=== PATIENT | female | born 1940 | race Hispanic/Latino ===

== ENCOUNTER 2018-03-06 16:27 | Inpatient (IN) | payer MEDICARE, BC ==
[2018-03-06] MEDS ORDERED: Levalbuterol 1.25 MG/3 ML Inhal Soln UD IH STA ×2 (16:49)
[2018-03-06 17:15] LABS: VENOUS BLOOD GAS BASE EXCESS 7.6 mmol/L (0.0-2.0); VENOUS BLOOD GAS PO2 35 mm/Hg (30-55); VENOUS BLOOD PH 7.39 (7.32-7.43)
[2018-03-06 17:26] LABS: BASO # 0.01 K/mm3 (0.0-2.0); EOS % 0.1 % (1.5-5.0); GRAN # 18.6 (1.4-6.5); GRAN % 88.8 % (50.0-68.0); HEMOGLOBIN 13.7 g/dL (12.0-16.0); LYMPH # 1.5 (1.2-3.4); LYMPH % 7.2 % (22.0-35.0); MEAN CELL VOLUME 88.1 fl (80.0-105.0); MEAN CORPUSCULAR HEMOGLOBIN 28.1 pg (25.0-35.0); MEAN CORPUSCULAR HGB CONC 31.9 g/dl (31.0-37.0); MEAN PLATELET VOLUME 9.2 fl (7.0-11.0); MONO # 0.8 (0.1-0.6); MONO % 3.9 % (1.0-6.0); RBC 4.87 10^6/uL (3.5-6.1); RED CELL DISTRIBUTION WIDTH 16.7 % (11.5-14.5)
--- NOTE | 2018-03-06 17:29 | ED PDOC ---
Arrival/HPI - General Chief Complaint: Shortness Of Breath Time Seen by Provider: 03/06/18 16:37 Historian: Patient - History of Present Illness Narrative History of Present Illness (Text): 03/06/18 17:16 77yo female with past medical history of Breast CA (s/p left breast mastectomy 20yrs ago), Lung CA s/p Proton radiation treatment in September, A-fib referred to emergency department by Dr. Restrepo to emergency department for SOB. Patient report SOB x months. States she was placed on Prednisone recently by her [employer] Manager, which was tapered down and she is currently on 2mg. Notes that she did not take the prednisone today. She admits to nonproductive cough. States she was treated with antibiotics few weeks ago and the cough improved, but still coughing. She also started Neb treatment yesterday. states she used the treatment all day without relieve. She denies fever, chills, orthopnea, REYNOLDS, chest pain, diaphroesis, LE edema, calf pain, nausea, vomiting, abdominal pain, any other complaint. Past Medical History - Provider Review Nursing Documentation Reviewed: Yes - Cardiac Hx Atrial Fibrillation: Yes Hx Pacemaker: No - Pulmonary Hx Bronchitis: Yes (05-30-12) - Neurological Hx Neurological Disorder: No - HEENT Other/Comment: WEARS RX GLASSES,POLYPS REMOVED IN THE VOCAL CHORDS.18 YRS AGO. - Hematological/Oncological Hx Blood Disorders: No Hx Cancer: Yes (Breast CA, Lung CA) Other/Comment: Left breast CA with Mastectomy. Lung CA with Proton radiation therapy (2018) - Musculoskeletal/Rheumatological Hx Falls: No - Gastrointestinal Hx Gastrointestinal Disorders: No - Genitourinary/Gynecological Hx Genitourinary Disorders: No Hx Reproductive Disorders: No - Psychiatric Hx Depression: No Hx Emotional Abuse: No Hx Physical Abuse: No Hx Substance Use: No - Surgical History Hx Cardiac Catheterization: Yes (05-30-12) Hx Mastectomy: Yes (Left) Hx Open Heart Surgery: Yes - Anesthesia Hx Anesthesia Reactions: No - Suicidal Assessment Feels Threatened In Home Enviroment: No Family/Social History - Physician Review Nursing Documentation Reviewed: Yes Family/Social History: Unknown Family HX Smoking Status: Current Some Days Smoker Hx Alcohol Use: No Hx Substance Use: No Allergies/Home Meds Allergies/Adverse Reactions: Allergies monosodium glutamate Allergy (Verified 03/06/18 16:47) REDNESS Home Medications: Home Meds Medication Instructions Recorded Confirmed Calcium Carbonate/Vitamin D3 1 tab PO DAILY 03/06/18 03/06/18 [Calcium 600 + Vit D Tablet] Cholecalciferol (Vitamin D3) 1,000 units PO DAILY 03/06/18 03/06/18 [Vitamin D3] Diltiazem HCl [Cardizem LA] 240 mg PO DAILY 03/06/18 03/06/18 Omeprazole 20 mg PO DAILY 03/06/18 03/06/18 RX: LORazepam [Ativan] 1 mg PO TID PRN 03/06/18 03/06/18 Review of Systems - Physician Review All systems were reviewed & negative as marked: Yes - Review of Systems Constitutional: Normal Eyes: Normal ENT: Normal Respiratory: SOB, Wheezing. absent: Cough, Sputum Cardiovascular: Normal Gastrointestinal: Normal Genitourinary Female: Normal Musculoskeletal: Normal Skin: Normal Neurological: Normal Endocrine: Normal Hemo/Lymphatic: Normal Psychiatric: Normal Physical Exam Vital Signs Reviewed: Yes Vital Signs Pulse Resp BP Pulse Ox 03/06/18 16:42 101 H 18 160/81 H 93 L Temperature: Afebrile Blood Pressure: Normal Pulse: Regular Respiratory Rate: Normal Appearance: Positive for: Well-Appearing, Non-Toxic, Comfortable Pain Distress: None Mental Status: Positive for: Alert and Oriented X 3 - Systems Exam Head: Present: Atraumatic, Normocephalic Pupils: Present: PERRL Extroacular Muscles: Present: EOMI Conjunctiva: Present: Normal Mouth: Present: Moist Mucous Membranes Neck: Present: Normal Range of Motion Respiratory/Chest: Present: Good Air Exchange, Wheezes (Diffuse expiratory wheeze), Other (Old healed scar noted on chest wall). No: Respiratory Distress, Accessory Muscle Use, Decreased Breath Sounds, Rales, Retracting, Rhonchi Cardiovascular: Present: Regular Rate and Rhythm, Normal S1, S2. No: Murmurs Abdomen: No: Tenderness, Distention, Peritoneal Signs Back: Present: Normal Inspection Upper Extremity: Present: Normal Inspection. No: Cyanosis, Edema Lower Extremity: Present: Normal Inspection. No: Edema Neurological: Present: GCS=15, CN II-XII Intact, Speech Normal Skin: Present: Warm, Dry, Normal Color. No: Rashes Psychiatric: Present: Alert, Oriented x 3, Normal Insight, Normal Concentration Medical Decision Making ED Course and Treatment: 03/06/18 21:47 Pt was referred to emergency department by Dr. Restrepo for SOB and cough x weeks Labs Chest xray CTA EKG EKG Sinus tachy with PVC @ 103bpm. None-stemi chest xray IMPRESSION: Redemonstration of right lower lobe consolidation and left upper lobe airspace disease with the left upper pleural thickening. Little interval change since the prior CT examination. Labs was reviewed and leukocytosis was noted. PT was on steriod, but WBC was highly elevated. Elevated Lactate was noted and pt was tachycardic and tachypneic on arrival and PNE noted on the chest xray. Code sepsis was called. Fluid and abx was ordered All result was DW both pt and the family members by the bedside. Pt was admitted to Dr. Robb CTA Chest CLINICAL HISTORY: Shortness of breath. TECHNIQUE: Scans are obtained with the bolus injection of IV contrast media. Omnipaque 350 147 ml. DLP 494.64. COMMENTS: There is bright opacification of the aorta and pulmonary arterial structures. The aorta is normal caliber and there is no dissection of the intima. No defect is seen in the pulmonary arteries to suggest pulmonary embolus. Moderate sized hiatal hernia is seen. Status post median sternotomy and CABG. The heart is moderately enlarged. Pulmonary venous congestive changes are present. Scattered pulmonary edema is present. There are areas of scattered ground glass opacifications throughout both lung gracia may represent superimposed pneumonia. The patient is status post left mastectomy. There is a mass like area of consolidation noted in the superior segment of the right lower lobe consistent with malignancy, it measures approximately 6 x 4 cm. There is bilateral hilar adenopathy present. There is no definite evidence of mediastinal adenopathy. There is additional mass like area of consolidation in the left parahilar area which is irregular measuring approximately 6.3 x 3.2 cm. There is severe diffuse scattered centrilobular emphysema with upper lobes predominance. Severe biapical scarring is present. Scarring is seen in the right middle lobe, lingula and lung bases. There is evidence of mild compression fracture deformities involving several thoracolumbar vertebral bodies. The gallbladder contains small calcified gallstone but is otherwise unremarkable. IMPRESSION: 1. No evidence of pulmonary embolism. 2. Moderate sized hiatal hernia. 3. Status post median sternotomy and CABG. The heart is moderately enlarged. 4. Pulmonary venous congestive changes. 5. Scattered pulmonary edema. 6. There are areas of scattered ground glass opacifications throughout both lung garcia may represent superimposed pneumonia. 7. Status post left mastectomy. 8. Mass like area of consolidation noted in the superior segment of the right lower lobe consistent with malignancy, it measures approximately 6 x 4 cm. 9. Bilateral hilar adenopathy. 10. Additional mass like area of consolidation in the left parahilar area which is irregular measuring approximately 6.3 x 3.2 cm. 11. Severe diffuse scattered centrilobular emphysema with upper lobes predominance. 12. Severe biapical scarring. Scarring in the right middle lobe, lingula and lung bases. 13. Mild compression fracture deformities involving several thoracolumbar vertebral bodies. 14. The gallbladder contains small calcified gallstone. 03/07/18 16:35 IMPRESSION: 1. No CTA evidence for acute pulmonary embolism. 2. 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 3. Little interval change in right lower lobe consolidation and airspace disease in the superior segment of the left lower lobe which may represent subsegmental atelectasis however superimposed pneumonia cannot be excluded. Follow-up after medical management is recommended to ensure complete resolution. A preliminary report was provided by [employer]. - RAD Interpretation Radiology Orders: 03/06/18 16:47 ANGIO CHEST PE PROTOCOL [CT] Stat 03/06/18 16:48 CHEST PORTABLE [RAD] Stat - Medication Orders Current Medication Orders: Discontinued Medications Levalbuterol HCl (Xopenex) 1.25 mg IH STAT STA Stop: 03/06/18 16:50 Last Admin: 03/06/18 17:11 Dose: 1.25 mg Levalbuterol HCl (Xopenex) 1.25 mg IH STAT STA Stop: 03/06/18 16:50 Last Admin: 03/06/18 17:11 Dose: 1.25 mg Methylprednisolone (Solu-Medrol) 125 mg IVP STAT STA Stop: 03/06/18 16:50 Last Admin: 03/06/18 17:12 Dose: 125 mg IVP Administration Document 03/06/18 17:12 LA (Rec: 03/06/18 17:12 LA [id number]) Charges for Administration # of IVP Administrations 1 Disposition/Present on Arrival - Present on Arrival Any Indicators Present on Arrival: No History of DVT/PE: No History of Uncontrolled Diabetes: No Urinary Catheter: No History of Decub. Ulcer: No History Surgical Site Infection Following: None - Disposition Have Diagnosis and Disposition been Completed?: Yes Diagnosis: Pneumonia, Sepsis Disposition: HOSPITALIZED Disposition Time: 18:00 Patient Plan: Admission Patient Problems: Current Active Problems Problem Status Onset Pneumonia Acute Sepsis Acute Condition: FAIR
[2018-03-06] MEDS ORDERED: Sodium Chloride 0.9% 1,000 ML IV STA (18:14)
--- NOTE | 2018-03-06 18:14 | RAD ---
Date of service: 03/06/2018 HISTORY: SOB COMPARISON: CT chest without contrast from 01/10/2018 FINDINGS: LUNGS: The lungs are well inflated. There is persistent consolidation in the right lower lobe. There is redemonstration of airspace disease and pleural thickening in the left upper lobe. PLEURA: No pleural effusions or pneumothorax. CARDIOVASCULAR: Mild cardiomegaly. No aortic atherosclerotic calcification present. Status post CABG with OSSEOUS STRUCTURES: There an S-shaped scoliosis in the thoracolumbar spine VISUALIZED UPPER ABDOMEN: Normal. OTHER FINDINGS: None. IMPRESSION: Redemonstration of right lower lobe consolidation and left upper lobe airspace disease with the left upper pleural thickening. Little interval change since the prior CT examination.
[2018-03-06] MEDS ORDERED: Vancomycin 1gm in NS 250ml 1 GM/250 ML BAG IVPB STA (18:15)
[2018-03-06] MEDS ORDERED: Piperacillin/Tazobact 3.375 gm 100 ML IVPB STA (18:15)
[2018-03-06 19:20] LABS: ALB/GLOB RATIO 1.1 (1.1-1.8); ALBUMIN 3.9 g/dL (3.0-4.8); ALT/SGPT 33 U/L (7-56); AST/SGOT 28 U/L (14-36); BLOOD UREA NITROGEN 20 mg/dL (7-21); CALCIUM 10.9 mg/dL (8.4-10.5); GFR NON-AFRICAN AMERICAN 54; PARTIAL THROMBOPLASTIN TIME 26.1 Seconds (25.1-36.5); PROTHROMBIN TIME 11.4 SECONDS (9.4-12.5)
[2018-03-06 19:27] LABS: B-TYPE NATRIURETIC PEPTIDE 324 pg/mL (0-450); TROPONIN I 0.03 ng/mL
[2018-03-06 22:09] LABS: VENOUS BLOOD GAS BASE EXCESS 0.8 mmol/L (0.0-2.0); VENOUS BLOOD GAS PO2 118 mm/Hg (30-55); VENOUS BLOOD PH 7.42 (7.32-7.43)
[2018-03-07 02:52] VITALS: BMI 33.5
[2018-03-07 07:25] LABS: VENOUS BLOOD GAS BASE EXCESS 4.7 mmol/L (0.0-2.0); VENOUS BLOOD GAS PO2 87 mm/Hg (30-55); VENOUS BLOOD PH 7.45 (7.32-7.43)
--- NOTE | 2018-03-07 09:11 | CARD ---
APPROVED REPORT Date of service: 03/06/2018 EKG Measurement Heart [id number] <Conclusion> Sinus tachycardia with occasional premature ventricular complexes RSR' or QR pattern in V1 suggests right ventricular conduction delay Moderate voltage criteria for LVH, may be normal variant ST-T Changes-Correlate Clinically.
[2018-03-07] MEDS: diltiaZEM 240 mg/24 Hours CD Cap PO SCH (11:02)
[2018-03-07] MEDS: MethylPREDNISolone 40 mg Vial IVP SCH ×2 (11:05→21:09)
[2018-03-07] MEDS: Calcium-Vit D 250 mg-125 Units Tab UD PO SCH (11:06)
[2018-03-07] MEDS: Pantoprazole 40 mg EC Tab PO SCH (11:06)
[2018-03-07] MEDS: Albuterol-Ipratrop 3 mg / 0.5 (3 ml) UD IH SCH ×4 (12:01→23:26)
--- NOTE | 2018-03-07 14:02 | CP.PCM.APN ---
Subjective - Date & Time of Evaluation Date of Evaluation: 03/07/18 Time of Evaluation: 10:00 - Subjective Subjective: pt seen at bedside with family, sitting in bed in no distress Review of Systems - Review of Systems All systems: reviewed and no additional remarkable complaints except Review of Systems: cough Objective - Vital Signs/Intake and Output Vital Signs (last 24 hours): Temp Pulse Resp BP Pulse Ox 97.6 F 89 20 140/87 98 03/07/18 12:00 03/07/18 12:16 03/07/18 12:00 03/07/18 12:00 03/07/18 05:33 Intake and Output: 03/07/18 03/07/18 06:59 18:59 Intake Total 120 Balance 120 - Medications Medications: Current Medications Albuterol/Ipratropium (Duoneb 3 Mg/0.5 Mg (3 Ml) Ud) 3 ml IH [id number] [facility] Last Admin: 03/07/18 12:01 Dose: 3 ml Aspirin (Aspirin Chewable) 81 mg PO DAILY [facility] Last Admin: 03/07/18 11:02 Dose: 81 mg Budesonide (Pulmicort Respules) 0.5 mg IH [id number] [facility] Calcium/Vitamin D (Oscal-D 250 Mg-125 Units Tab) 1 tab PO DAILY [facility] Last Admin: 03/07/18 11:06 Dose: 1 tab Diltiazem HCl (Cardizem Cd) 240 mg PO DAILY [facility] Last Admin: 03/07/18 11:02 Dose: 240 mg Methylprednisolone (Solu-Medrol) 40 mg IVP Q12 [facility] Last Admin: 03/07/18 11:05 Dose: 40 mg Pantoprazole Sodium (Protonix Ec Tab) 40 mg PO 0600 [facility] Last Admin: 03/07/18 11:06 Dose: 40 mg - Labs Labs: 03/06/18 16:50 03/06/18 18:55 PT 11.4 SECONDS (9.4-12.5) 03/06/18 18:55 INR 1.00 03/06/18 18:55 APTT 26.1 Seconds (25.1-36.5) 03/06/18 18:55 - Constitutional Appears: Non-toxic, No Acute Distress - Head Exam Head Exam: NORMOCEPHALIC - Eye Exam Eye Exam: Normal appearance - Respiratory Exam Respiratory Exam: Decreased Breath Sounds, NORMAL BREATHING PATTERN - Cardiovascular Exam Cardiovascular Exam: Irregular Rhythm, +S1, +S2 - GI/Abdominal Exam GI & Abdominal Exam: Normal Bowel Sounds Assessment and Plan - Assessment and Plan (Free Text) Plan: Impressions Chest X-Ray 03/06/18 16:48 IMPRESSION: Redemonstration of right lower lobe consolidation and left upper lobe airspace disease with the left upper pleural thickening. Little interval change since the prior CT examination. 03/07/18 08:38 Physician Consult Routine Comment: Consulting Provider: Jaxon Albert Consulting Physician: Jaxon Albert Reason for Consult: hx of afib, CABG 03/07/18 08:41 Physician Consult Routine Comment: Consulting Provider: Eugene Edge Consulting Physician: Eugene Edge Reason for Consult: SOB 03/07/18 08:43 Physician Consult Routine Comment: Consulting Provider: Mario Marti Consulting Physician: Mario Marti Reason for Consult: elevated WBCs Current Active Problems Pneumonia (Acute) Sepsis (Acute) A/P 77 yr old white female with pmh sig for breast ca s/p left mastectomy,afib and cad s/p CABG admitted with sob and nonproductive cough with leukocytosis and sinus tachycardia now with cardiac, pulmonary and ID consultations and workup pending. pt with cxr noted on iV steroids and dounebs chest Ct pending will follow BPCI/TIC - BPCIA/TIC Flyers given, including CMS Beneficiary letter: Yes Pt/family verbalized understanding & agreed to program: Yes
--- NOTE | 2018-03-07 14:14 | CT ---
Date of service: 03/06/2018 PROCEDURE: CT Chest with contrast (Pulmonary Angiogram) HISTORY: SOB COMPARISON: CT chest without contrast from 10/10/2010. TECHNIQUE: Axial computed tomography images were obtained of the chest in the pulmonary arterial phase of enhancement. Coronal and sagittal reformatted images were created and reviewed. Intravenous contrast dose: 147 mL Omnipaque 350 Radiation dose: Total exam DLP = 494.64 mGy-cm. This CT exam was performed using one or more of the following dose reduction techniques: Automated exposure control, adjustment of the mA and/or kV according to patient size, and/or use of iterative reconstruction technique. FINDINGS: PULMONARY ARTERIES: There are no filling defects in the pulmonary arteries to suggest acute pulmonary embolism. AORTA: No acute findings. No thoracic aortic aneurysm. No aortic atherosclerotic calcification or mural plaque present. LUNGS: Since the prior examination, there has been little interval change in right lower lobe consolidation with air bronchograms. There is stable to slightly decreased 3.2 by 1.1 cm pleural-based mass in the left upper lobe and fibrotic changes in the left upper lobe.. There is also little interval change in airspace disease in the superior segment of the left lower lobe. There are no endobronchial lesions. PLEURAL SPACES: No effusion or pneumothorax. HEART: No cardiomegaly. No significant pericardial effusion. LYMPH NODES: There are stable subcentimeter mediastinal lymph nodes and mild hilar lymphadenopathy. BONES, CHEST WALL: Within normal limits for the patient's age. Multilevel degenerative changes and diffuse bone demineralization. There is an old superior endplate compression fracture deformity in the L2 vertebral body. OTHER FINDINGS: There is a stable hypodense nodule in the lower pole of the right thyroid. There is focal gallbladder wall calcification posteriorly. Fatty liver. There is a small sliding hiatal hernia. IMPRESSION: 1. No CTA evidence for acute pulmonary embolism. 2. 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 3. Little interval change in right lower lobe consolidation and airspace disease in the superior segment of the left lower lobe which may represent subsegmental atelectasis however superimposed pneumonia cannot be excluded. Follow-up after medical management is recommended to ensure complete resolution. A preliminary report was provided by [employer]. There is a discrepancy with the preliminary report. The final report is tagged to the PA review folder.
--- NOTE | 2018-03-07 16:53 | CARD ---
APPROVED REPORT Date of service: 03/07/2018 EXAM: Two-dimensional and M-mode echocardiogram with Doppler and color Doppler. INDICATION Dyspnea 2D DIMENSIONS Left Atrium (2D)3.5 (1.6-4.0cm)IVSd0.9 (0.7-1.1cm) LVDd4.6 (3.9-5.9cm)PWd1.1 (0.7-1.1cm) LVDs2.9 (2.5-4.0cm)FS (%) 36.0 % LVEF (%)65.6 (>50%) M-Mode DIMENSIONS Aortic Root3.10 (2.2-3.7cm)Aortic Cusp Exc.1.50 (1.5-2.0cm) Aortic Valve AoV Peak Svfhnehv225.0cm/sAoV VTI40.4cmAO Peak GR.16mmHg LVOT Peak Vsppqbga47.3cm/sLVOT VTI23.40cmAO Mean GR.9mmHg Mitral Valve MV E Jegniyvi24.1cm/sMV A Eohcixig93.3cm/sE/A ratio0.8 TDI Lateral E' Peak V10.00cm/sMedial E' Peak V8.29cm/sE/Lateral E'7.7 E/Medial E'9.3 Pulmonary Valve PV Peak Kpounbzh27.1cm/sPV Peak Grad.1mmHg Tricuspid Valve TR Peak Sbbbnjen398mx/sRAP XZTMCEIW21yoBaGM Peak Gr.56mmHg [id number] LEFT VENTRICLE The left ventricle is normal size. There is normal left ventricular wall thickness. The left ventricular function is normal. The left ventricular ejection fraction is within the normal range. There is normal LV segmental wall motion. RIGHT VENTRICLE The right ventricle is mildly dilated. There is normal right ventricular wall thickness. The right ventricular systolic function is normal. ATRIA The left atrium size is normal. The right atrium is moderately dilated. The interatrial septum is intact with no evidence for an atrial septal defect. AORTIC VALVE The aortic valve is normal in structure. No aortic regurgitation is present. There is no aortic valvular stenosis. MITRAL VALVE Mitral annular calcification is mild. There is no mitral valve regurgitation noted. TRICUSPID VALVE The tricuspid valve is normal in structure. There is moderate to severe tricuspid regurgitation. There is moderate to severe pulmonary hypertension. GREAT VESSELS The aortic root is normal in size. The IVC is normal in size and collapses >50% with inspiration. PERICARDIAL EFFUSION There is no pleural effusion. There is no pericardial effusion. <Conclusion> Dilated RV and RA. Normal LV size and systolic function. Moderate to severe TR. Moderate to sevre pulmonary HTN.
[2018-03-07] MEDS: Sulfamethoxazole/Trimethoprim 240 MG in Dextrose 5% In Water 250 ML IVPB SCH (19:02)
--- NOTE | 2018-03-07 19:03 | CON ---
DATE: 03/07/2018 PULMONARY CONSULTATION REASON FOR PULMONARY CONSULTATION: Chronic obstructive pulmonary disease. REFERRING PHYSICIAN FOR THIS PULMONARY CONSULTATION: Dr. Restrepo. HISTORY OF PRESENT ILLNESS: The patient is a 77-year-old female, with past medical history significant for advanced lung cancer, status post proton beam radiation treatments, chronic obstructive pulmonary disease, paroxysmal atrial fibrillation, who presents to [facility] ([facility]3] with main complaints of dyspnea on exertion, cough, and minimal sputum production for the past month. The patient is not short of breath at rest. There is no history of chest pain, coughing up of blood, or chest pain - brought on with deep respirations. There is no history of temperatures, chills, or infectious exposure. There is no history of night sweats, weight loss, or appetite change prior to the above events. No history of leg or calf pains. No history of syncope or diaphoresis. No history of recent travel or trauma. REVIEW OF SYSTEMS: No nausea, vomiting, or diarrhea. No acute urinary symptoms. No new neurologic or musculoskeletal complaints. Rest of the review of systems is negative. ALLERGIES: MONOSODIUM GLUTAMATE. SOCIAL HISTORY: Positive for tobacco usage for many years - stopped six years ago. No alcohol. FAMILY HISTORY: No inheritable diseases. HOME MEDICATIONS: Include Ativan, omeprazole, calcium, Cardizem, and vitamins. PHYSICAL EXAMINATION: GENERAL: The patient appears comfortable at rest. She is not short of breath. VITAL SIGNS: Temperature is 98.2, pulse 70, respirations 18, blood pressure 153/61. Oxygen saturation on nasal cannula is 98%. HEENT: Normocephalic, atraumatic. NECK: No JVD. CARDIOVASCULAR: Positive S1, S2. No S3 gallop. LUNGS: Decreased breath sounds at the bases. Mild rhonchi and wheezing bilaterally are appreciated. EXTREMITIES: Mild edema. No cyanosis, no clubbing. Calves are nontender to palpation. GASTROINTESTINAL: Abdomen is soft, nontender, and nondistended. Bowel sounds are positive. SKIN: No acute rash. NEUROLOGIC: Exam limited at the present time. PERTINENT LABORATORY DATA: CAT scan of the chest was done yesterday as an angiogram protocol. There is no pulmonary embolism seen. There is a left upper lobe consolidation with bronchiectasis. There is also a right lower lobe consolidation. These consolidations are not significantly changed from the CAT scan of 01/10/2018. CBC: White count 21.0K, hemoglobin 13.7, hematocrit 42.9, platelets of 375,000. Complete metabolic profile: Glucose 120, calcium 10.9, LDH 870. Rest of the metabolic profile is within normal limits. IMPRESSION: 1. Chronic obstructive pulmonary disease. 2. Acute bronchitis. 3. Advanced lung cancer. 4. Possible radiation pneumonitis. 5. Paroxysmal atrial fibrillation. PLAN: I did discuss the case with the nurse at length. I have also reviewed the chart at length, and discussed the case with the patient at length. The patient presents to [facility] ([facility]3] with a one-month history of worsening dyspnea on exertion, cough, and minimal sputum production. She offers no other pulmonary symptoms. I did review the CAT scan of the chest - done as an angiogram protocol. Again, the consolidations in the left upper lobe and right lower lobe are very similar to those seen on the CAT scan of 01/10/2018. I have also reviewed the history with Dr. Restrepo at length. Radiation pneumonitis is a possibility. On physical exam, the patient is in [id number] bronchospasm. However, there is no significant alveolar-arterial gradient. I will continue the current DuoNeb treatments and add inhaled Pulmicort. I will also add moderate-dose intravenous steroids. The patient does state to feeling better this morning - compared to the past few days. She appears clinically improved. However, given the above, her future status/prognosis appears very guarded . Again, I did discuss the case with Dr. Restrepo at length. Thank you very much for this pulmonary consultation. Nitesh Larkin MD [facility]
[2018-03-07] MEDS: Budesonide 0.5 mg/2 ml Inhal Susp UD IH SCH (20:19)
--- NOTE | 2018-03-07 21:52 | CON ---
DATE: 03/07/2018 The patient is seen early today in room 269, bed 2. CHIEF COMPLAINT: Shortness of breath times several days and actually overall most of several weeks have gotten worse. HISTORY OF PRESENT ILLNESS: This is a 77-year-old female known to me from previous admission 2012 with chronic obstructive lung disease and was seen in the emergency room. The patient also with high cholesterol, anxiety, history of coronary artery disease, and history of lung cancer. According to the emergency room, the patient also had breast mastectomy 20 years ago with lung cancer, the patient had radiation therapy and has been complaining of shortness of breath, which gotten worse over the last several weeks. The patient has been on prednisone 2 mg and was on higher dose earlier and has gotten worse progressive shortness of breath. There is cough which is nonproductive and there is low-grade fever. No chills. No chest pain. No abdominal pain, diarrhea, or constipation. REVIEW OF SYSTEMS: A 12-point review of systems performed. PAST MEDICAL HISTORY: Significant for atrial fibrillation, bronchitis, lung cancer, radiation therapy, coronary artery disease, and anxiety. PAST SURGICAL HISTORY: Significant for breast mastectomy, cardiac catheterization, coronary artery bypass graft by on 05/31/2012. ALLERGIES: MONOSODIUM GLUTAMATE. MEDICATIONS AT HOME: Include Ativan, omeprazole, vitamins, and . PHYSICAL EXAMINATION: VITAL SIGNS: The patient is seen in bed with temperature of 98, heart rate of 89, heart rate is up to 101 on admission, respiratory rate of 20, and blood pressure 140/80. HEENT: Unremarkable. NECK: Supple. LUNGS: Decreased breath sounds. HEART: Normal S1 and S2. ABDOMEN: Soft and nontender. LABORATORY DATA: Reveals a white count of 21,000, hemoglobin of 13, and platelets of 375. The differential is noted granulocyte 88%. D-dimer is 43. BUN of 20, creatinine of 1, glucose of 120, and procalcitonin of 0.12. Influenza serology is negative. Microbiology; blood cultures no growth. The patient had an echo with [id number] pulmonary hypertension. The patient had a CAT scan of the chest, which reveals air bronchograms and right lower lobe consolidation, pleural based mass, and no effusion or pneumothorax, interstitial disease. The patient also had a chest x-ray noted to have infiltrates. ASSESSMENT AND PLAN: A 77-year-old female with chronic obstructive lung disease, high cholesterol, atrial fibrillation, anxiety, coronary artery disease, lung cancer presenting with leukocytosis, tachycardia, shortness of breath, sepsis with healthcare-associated pneumonia versus opportunistic infections. The patient has been on steroids and tapering dose and PCP, Histoplasma, Aspergillus, Cryptococcus, and Legionella less likely and we will treat the patient with Bactrim and doxycycline, check on blood cultures, urine cultures, sputum culture, and methicillin-resistant Staphylococcus aureus screen. We will order for Aspergillus workup, Cryptococcus antigen, Fungitell, 1,3 beta D-glucan, also galactomannan antigen and urine for Legionella antigen. The patient started on Solu-Medrol and we will start the patient on Bactrim and doxycycline. The patient does have an elevated LDH and we will follow closely with you. Marino Madera MD
[2018-03-08 00:14] LABS: URINE BILIRUBIN NEGATIVE (NEGATIVE); URINE BLOOD SMALL (NEGATIVE); URINE GLUCOSE (UA) NEGATIVE (NEGATIVE); URINE LEUKOCYTE ESTERASE TRACE Leu/uL (NEGATIVE); URINE PROTEIN NEGATIVE mg/dL (<30 mg/dL); URINE UROBILINOGEN 0.2 E.U./dL (<1 E.U./dL)
[2018-03-08 00:15] LABS: URINE APPEARANCE SL CLOUDY (CLEAR); URINE COLOR YELLOW (YELLOW)
[2018-03-08 00:24] LABS: URINE BACTERIA RARE /hpf; URINE EPITHELIAL CELLS 0 - 2 /hpf (0-5); URINE RBC 0 - 2 /hpf (0-2); URINE WBC 15 - 20 /hpf (0-6)
--- NOTE | 2018-03-08 00:48 | CON ---
DATE OF CONSULTATION: 03/07/2018 REQUESTING PHYSICIAN: Dr. Restrepo REASON FOR CONSULTATION: Dyspnea and known coronary artery disease. HISTORY: This is a 77-year-old woman with known coronary artery disease status post prior bypass surgery as well as a history of paroxysmal atrial fibrillation, who was admitted with worsening cough and dyspnea. She has been treated as an outpatient with antibiotics and steroids with suboptimal benefit. She presented with worsening symptoms and was admitted. She did undergo coronary artery bypass surgery 5 years ago at [facility]. She has had a history of paroxysmal atrial fibrillation as well. She has a prior history of breast cancer for which she underwent left mastectomy over 20 years ago. She was recently diagnosed with lung cancer in 09/2017 and underwent proton radiation therapy for this. She denies any recent chest pain. FAMILY HISTORY: Both parents from age-related illness. SOCIAL HISTORY: She tends to smoke occasionally. MEDICATIONS AT HOME: Ativan, diltiazem 240 mg daily, and omeprazole. ALLERGIES: REACTION TO MSG IN THE PAST. REVIEW OF SYSTEMS: A 10-point review of systems is notable mainly for the problems mentioned above. PHYSICAL EXAMINATION: GENERAL: She is an elderly woman who appears mildly uncomfortable at rest secondary to dyspnea. VITAL SIGNS: Her blood pressure is 140/86 with pulse of 88 and sinus. Respirations are 16. She is afebrile. HEENT: Normocephalic, atraumatic. NECK: Supple. No JVD noted. CHEST: Bilateral coarse rhonchi with expiratory wheezing present. No rales heard. HEART: PMI displaced laterally with a soft systolic murmur heard at left sternal border. ABDOMEN: Soft with normoactive bowel sounds. EXTREMITIES: No clubbing, cyanosis or edema. SKIN: Warm and dry. PSYCHIATRIC: Normal mood and affect. NEUROLOGICAL: Alert and oriented x3. No gross motor or sensory deficits noted. DIAGNOSTIC DATA: White count is 21.0, hemoglobin and hematocrit are 13.7 and 42.9 with platelet count of 375,000. PT/PTT are normal. Venous blood gas: pH 7.39, pCO2 of 57, pO2 of 35. Potassium is 3.7. BUN and creatinine are 20 and 1.0. Troponin is 0.03. BNP is 324. Influenza serology is negative. Electrocardiogram reveals sinus tachycardia with occasional PVCs. Voltage criteria for LVH is present. Chest x-ray reveals increased cardiac silhouette, post sternotomy changes, and possible right lower lobe consolidation. IMPRESSION: 1. Worsening dyspnea and cough, appears most consistent with chronic obstructive pulmonary disease exacerbation. Cannot exclude underlying pneumonia. 2. Coronary artery disease, status post prior bypass surgery, appears clinically stable at the present time. 3. Paroxysmal atrial fibrillation, currently in sinus rhythm. 4. History of lung cancer, undergoing active therapy. RECOMMENDATIONS: Her current cardiac medications should continue for now. An echocardiogram will be obtained to assess the left ventricular size and function and exclude any significant valvular abnormalities. Aggressive bronchodilator and steroid therapy should continue. We will continue to follow and make further recommendations as appropriate. Thank you for this consultation. Devonte Infante MD
[2018-03-08] MEDS: Sulfamethoxazole/Trimethoprim 240 MG in Dextrose 5% In Water 250 ML IVPB SCH ×3 (02:34→18:37)
[2018-03-08] MEDS: Albuterol-Ipratrop 3 mg / 0.5 (3 ml) UD IH SCH ×6 (02:54→23:33)
[2018-03-08] MEDS: Pantoprazole 40 mg EC Tab PO SCH (06:12)
[2018-03-08 07:31] LABS: BASO # 0.01 K/mm3 (0.0-2.0); GRAN # 20.88 (1.4-6.5); GRAN % 95.2 % (50.0-68.0); HEMOGLOBIN 12.6 g/dL (12.0-16.0); LYMPH # 0.6 (1.2-3.4); LYMPH % 2.7 % (22.0-35.0); MEAN CELL VOLUME 87.3 fl (80.0-105.0); MEAN CORPUSCULAR HEMOGLOBIN 28.1 pg (25.0-35.0); MEAN CORPUSCULAR HGB CONC 32.2 g/dl (31.0-37.0); MEAN PLATELET VOLUME 9.4 fl (7.0-11.0); MONO # 0.5 (0.1-0.6); MONO % 2.1 % (1.0-6.0); PLATELET COUNT 367 10^3/uL (120.0-450.0); RBC 4.48 10^6/uL (3.5-6.1); RED CELL DISTRIBUTION WIDTH 16.4 % (11.5-14.5); WHITE BLOOD COUNT 21.9 10^3/uL (4.5-11.0)
[2018-03-08 07:51] LABS: ALB/GLOB RATIO 1.1 (1.1-1.8); ALBUMIN 3.4 g/dL (3.0-4.8); ALT/SGPT 34 U/L (7-56); AST/SGOT 22 U/L (14-36); BLOOD UREA NITROGEN 21 mg/dL (7-21); CALCIUM 9.8 mg/dL (8.4-10.5); GFR NON-AFRICAN AMERICAN > 60
--- NOTE | 2018-03-08 08:19 | HP ---
DATE OF EXAM: 03/08/2018 LOCATION: The patient is in room 269, bed 2. The patient was earlier seen today after being admitted through the emergency room. 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 The patient was not a candidate for surgical resection. She has biopsy-proven adenocarcinoma of the lung, especially biopsy of the left upper lobe of the lung. The right lower lobe lung lesion was noted to be progressively getting worse and assumed to be met or new primary, but was not biopsied. Both the lesions were treated simultaneously with proton beam therapy as the patient was not a candidate for, as I mentioned, surgical resection or systemic chemotherapy. The patient did receive oral drugs such as Tarceva, but could not tolerate it and while on the treatment, the disease was getting slightly worse and that is when we chose to go the path of radiation therapy. The patient completed radiation about a month and a half ago, but since then had been coughing after being quiescent for about two to three weeks, started having increasing coughing, wheezing, and shortness of breath, had been seen by the radiation oncologist again, had been put empirically on steroids or what appeared to be on impression radiation pneumonitis as the tumors in both the areas on a followup PET/CT scan did not light up and yet the patient had dense consolidation around the surrounding sites where the original tumor was indicative of radiation side effect. The patient has been on tapering doses of steroids and then her breathing got worse and she had been again started on higher doses and is being tapered gradually. The patient was down to prednisone of 2 mg, but prior to this, was on much higher doses of up to 60 mg a day. The patient has been having progressive shortness of breath with mild, little, or no productive cough over the last month. The patient tells me that over the last few days, she had gotten progressively worse, and yesterday prior to admission, she was having increasing wheezing, increasing coughing and she had an untoward reaction to one of the antibiotics that the had been given, and her wheezing had gotten so difficult that she thought she was drowning in her own secretions and she thought she was dying and that is when she told her granddaughter to give me a call and I advised the patient to come over to the hospital. The cough that is being experienced by the patient is nonproductive, but the patient also has a low grade temperature. No chills. The patient has been having significant mid back pain related to kyphoscoliosis. No abdominal pain, diarrhea, or constipation. Ankle edema has gotten worse. Her shortness of breath and pain and discomfort on a scale of 0 to 10, if 10 was the best, was down almost to 0, prompting her to come to the hospital. The patient had just seen the radiation oncologist along with her son about five days ago prior to the admission on Sunday,when he had gone over all the films with them and reassured them this was most likely radiation pneumonitis rather than progression of the disease as a PET/CT failed to light up the original sites where the tumor was located on the prior PET/CT. A question of an opportunistic infection was also raised as the patient has been on steroids intermittently over the past few months. REVIEW OF SYSTEMS: A 12-point review of systems is performed and they were all negative except what is mentioned in the HPI. PAST MEDICAL HISTORY: Also significant for the fact the patient has a remote history of breast cancer on the left side about 25 years ago, early disease, treated with tamoxifen after five years everything was stopped. The patient has a history of COPD. She is a heavy smoker, quit smoking about several years ago. The patient has history of coronary artery disease, status post coronary artery bypass surgery. The patient has a history of kyphoscoliosis, which has gotten worse over the last few years. The patient also has a history of anxiety. The patient has been treated in the past with TKIs including Tarceva in the past. The patient had progression, not a candidate for chemotherapy and hence been given proton beam therapy. ALLERGIES: PATIENT IS ALLERGIC TO MONOSODIUM GLUTAMATE. MEDICATIONS: At the home included, Ativan, omeprazole, vitamin D and multivitamins. She has also received Mycelex Mi that she was taking at home for her thrush in the past. PHYSICAL EXAMINATION: GENERAL: Reveals the patient to be awake, alert. VITAL SIGNS: The patient's temperature is 98, heart rate is 89, was up to 101 on admission, respirations 20, blood pressure is 140/80. HEENT: Head is normocephalic, atraumatic. Conjunctivae pale. Sclerae are anicteric. The patient is short of breath at rest. NECK: Supple. There is no adenopathy. LUNGS: Examination of the lungs reveals scattered wheezes, rhonchi with crepitant rales in both lung garcia posteriorly. CARDIOVASCULAR: Examination of the cardiovascular system reveals PMI to be in the fifth intercostal space inside the midclavicular line. S1 and S2 are normal. No gallop or murmur is heard. ABDOMEN: Soft, mildly protuberant, nontender. No rebound, rigidity, or guarding is noted. EXTREMITIES: Reveal ankle edema in both lower extremities. Upper extremities are unremarkable. NEUROLOGIC: Reveals functions to be normal. No focal deficits are noted, plantars or flexors. LABORATORY DATA: Reviewed. White count is 21,000; hemoglobin is 13; hematocrit is 32; platelet count 375,000; granulocyte count is 88%. D-dimer is 43. BUN is 20, creatinine is 1. Glucose is 120. Procalcitonin is 0.12. Influenza serology is negative. Blood cultures showed no growth. The patient had an echo which shows [id number] pulmonary hypertension. CAT scan of the chest which shows air bronchograms and right lower lobe consolidation, left lower lobe consolidation. No effusions, no pneumothorax, or interstitial lung disease. The patient also in addition to having the aforementioned findings, also had a diagnosis of paroxysmal atrial fibrillation for which she had been put on Cardizem by Dr. Albert along with short course of Eliquis which had then had to be stopped as the patient has significant hematuria. ASSESSMENT NOTES AND PLAN: A 77-year-old female with chronic obstructive lung disease, chronic obstructive pulmonary disease, emphysema who is admitted with progressive shortness of breath in the presence of atrial fibrillation paroxysmal, coronary artery disease, history of bilateral lung cancer, status post proton beam therapy, had been on high-dose prednisone which was being tapered and now readmitted in the emergency room and given again high doses of steroids because of worsening shortness of breath along with coverage with antibiotics to give her the benefit of doubt whether the patient could have an opportunistic infection while being on steroids for more than two and a half months. Differential diagnosis of infection could be PCP, histoplasmosis, Aspergillus Cryptococcus and Legionella less likely. In view of this, the patient has been started on IV antibiotics. The patient got IV Solu-Medrol 125 mg in the emergency room. She got a dose of vancomycin and Merrem and now after being seen by Infectious Disease, the patient has been started on p.o. doxycycline and IV Bactrim in view of the chronic steroid therapy. The patient has also had checked for methicillin-resistant Staph aureus screen. Also ordered for Aspergillus and Cryptococcus antigen testing, fungi, T cells 1.3, beta-D glucan and galactomannan antigen and urine for Legionella antigen have also been requested. The patient has an elevated LDH, which is of concern of increased damage to the lungs, so we need to follow her very over the next few days. Blood work has been requested. The patient is going to be seen by Infectious Disease, Dr. Madera; Cardiology Dr. Albert, and Dr. Infante, and Pulmonology Dr. Larkin. We will follow the patient very carefully and decide on further maneuvers and management plans. A detailed discussion with the patient's son, also I spoke to the patient's daughter from out of town at great length along with the patient. Time spent with the patient is greater than 80 minutes, collating all the data giving in the information to the patient and her family and discussing further treatment plans. I told the patient she may have to continue the antibiotics to assure which direction we are headed as since being on steroids increases the chances of immunosuppression and opportunistic infection. We will cover the patient also with Mycelex Troches to prevent issues with local thrush infection in the mouth and the oropharynx. Labs for a.m has been requested. Vicki Restrepo MD
[2018-03-08 08:24] LABS: LYMPHOCYTE 1 % (22.0-35.0); MONOCYTE 1 % (1.0-6.0); NEUTROPHIL 98 % (50.0-70.0); PLATELET ESTIMATE NORMAL (NORMAL)
--- NOTE | 2018-03-08 08:24 | PN ---
DATE: 03/08/2018 PULMONARY NOTE SUBJECTIVE: The patient is appears comfortable this morning. She is not short of breath at rest. PHYSICAL EXAMINATION: VITAL SIGNS: Temperature is 98.1, pulse 74, respirations 18/20, blood pressure 131/73 and oxygen saturation on nasal cannula is 95%. HEENT: Normocephalic and atraumatic. No JVD. CARDIOVASCULAR: Positive S1 and S2. No S3 gallop. LUNGS: Improved breath sounds at the bases. Less rhonchi. Less wheezing. EXTREMITIES: Mild edema. No cyanosis. No clubbing. Calves are nontender to palpation. GI: Abdomen is soft, nontender and nondistended. Bowel sounds are positive. SKIN: No acute rash. NEUROLOGIC: Exam limited at the present time. IMPRESSION: 1. Chronic obstructive pulmonary disease. 2. Acute bronchitis. 3. Advanced lung cancer. 4. Possible radiation pneumonitis. 5. Paroxysmal atrial fibrillation. PLAN: The patient appears comfortable this morning. She is not short of breath at rest. She does state to feeling better overall. I did discuss the case with the night nurse at length. The night nurse stated the patient had a good night. On physical exam, there is certainly less bronchospasm noted. In addition, the alveolar-arterial gradient is also less. I will continue the current nebulizer treatments and current intravenous steroids for now. I should be able to start the steroid taper in the next 24-48 hours. The patient is also on antibiotic therapy. Input by Infectious Disease (Rocio Worthy) is noted. Clinical status of the patient is certainly improved - compared to initial presentation. However, given the above, the future status/prognosis for this patient remains very guarded. I will discuss the above with the attending physician later this morning. Nitesh Larkin MD [facility]
[2018-03-08] MEDS: Budesonide 0.5 mg/2 ml Inhal Susp UD IH SCH ×2 (08:32→19:58)
[2018-03-08] MEDS: diltiaZEM 240 mg/24 Hours CD Cap PO SCH (09:25)
[2018-03-08] MEDS: MethylPREDNISolone 40 mg Vial IVP SCH ×2 (09:25→22:35)
[2018-03-08] MEDS: Calcium-Vit D 250 mg-125 Units Tab UD PO SCH (09:26)
--- NOTE | 2018-03-08 12:54 | CP.PCM.PN ---
Subjective - Date & Time of Evaluation Date of Evaluation: 03/08/18 Time of Evaluation: 11:10 - Subjective Subjective: Patient is sitting on a chair comfortably, no fevers, still with SOB but less. Objective - Vital Signs/Intake and Output Vital Signs (last 24 hours): Temp Pulse Resp BP Pulse Ox 97.6 F 86 14 139/79 95 03/08/18 12:00 03/08/18 12:00 03/08/18 12:00 03/08/18 12:00 03/08/18 06:00 Intake and Output: 03/08/18 03/08/18 06:59 18:59 Intake Total 2100 Output Total 3 Balance 7 - Medications Medications: Current Medications Albuterol/Ipratropium (Duoneb 3 Mg/0.5 Mg (3 Ml) Ud) 3 ml IH [id number] [facility] Last Admin: 03/08/18 11:25 Dose: 3 ml Aspirin (Aspirin Chewable) 81 mg PO DAILY [facility] Last Admin: 03/08/18 09:26 Dose: 81 mg Budesonide (Pulmicort Respules) 0.5 mg IH [id number] [facility] Last Admin: 03/08/18 08:32 Dose: 0.5 mg Calcium/Vitamin D (Oscal-D 250 Mg-125 Units Tab) 1 tab PO DAILY [facility] Last Admin: 03/08/18 09:26 Dose: 1 tab Diltiazem HCl (Cardizem Cd) 240 mg PO DAILY [facility] Last Admin: 03/08/18 09:25 Dose: 240 mg Doxycycline Hyclate (Doryx) 100 mg PO Q12 [facility]; Protocol Stop: 03/12/18 22:01 Last Admin: 03/08/18 09:26 Dose: 100 mg Trimethoprim/Sulfamethoxazole (240 mg/ Dextrose) 250 mls @ 166.667 mls/hr IVPB Q8H [facility]; Protocol Stop: 03/14/18 18:01 Last Admin: 03/08/18 11:09 Dose: 166.667 mls/hr Lorazepam (Ativan) 1 mg PO TID PRN; Protocol PRN Reason: Anxiety Methylprednisolone (Solu-Medrol) 40 mg IVP Q12 [facility] Last Admin: 03/08/18 09:25 Dose: 40 mg Pantoprazole Sodium (Protonix Ec Tab) 40 mg PO 0600 [facility] Last Admin: 03/08/18 06:12 Dose: 40 mg - Labs Labs: 03/08/18 07:00 03/08/18 07:00 PT 11.4 SECONDS (9.4-12.5) 03/06/18 18:55 INR 1.00 03/06/18 18:55 APTT 26.1 Seconds (25.1-36.5) 03/06/18 18:55 - Constitutional Appears: Chronically Ill - Head Exam Head Exam: NORMAL INSPECTION - Neck Exam Neck Exam: absent: Meningismus - Respiratory Exam Respiratory Exam: Decreased Breath Sounds - Cardiovascular Exam Cardiovascular Exam: +S1, +S2 - GI/Abdominal Exam GI & Abdominal Exam: Soft. absent: Tenderness Assessment and Plan - Assessment and Plan (Free Text) Plan: Assessment Sepsis due to HCAP, atypical lung CA CAD S/P CABG S/P mastectomy atrial fibrillation history of bronchitis COPD anxiety Plan Continue IV Bactrim and PO Doxycycline pending fungitell, histoplasma antigen, Crypt Ag; LDH is elevated PCT is low will continue to monitor clinically
--- NOTE | 2018-03-08 13:12 | CON ---
DATE: 03/08/2018 REFERRING PHYSICIAN: Dr. Restrepo. REASON FOR CONSULTATION: Medical management of COPD, coronary artery disease and anxiety. CHIEF COMPLAINT AND HISTORY OF PRESENT ILLNESS: This is a 77-year-old female, who came in to the hospital because of shortness of breath. The patient was having worsening shortness of breath. She was placed on prednisone by Dr. Edge, but state that she did not take the medication. She had missed out on an antibiotic for cough, but still remained with the cough. The patient does not have much sputum production today. She says that she does not have shortness of breath when she is at rest, only on exertion. She denies any fevers or chills. No nausea. No abdominal pain. No back pain. No dysuria or frequency. No nocturia. 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 She had been treated with radiation. She has a history of COPD as well. She had received Tarceva for her cancer. In the past she had been on steroids with prednisone mg. REVIEW OF SYSTEMS: All other review of symptoms are within normal limits except as mentioned. ALLERGIES: TO MONOSODIUM GLUTAMATE. MEDICATIONS: Her medications is Ativan, omeprazole, vitamin D and multivitamins. PAST MEDICAL HISTORY: 1. Breast cancer, left side x25 years ago. Had been on tamoxifen for 5 years. 2. COPD. 3. Coronary artery disease status post CABG. 4. Kyphosis. 5. Anxiety. 6. Non-small cell carcinoma of the lung. SOCIAL HISTORY: The patient was a smoker, but quit about 6 years ago. She denies alcohol abuse. FAMILY HISTORY: Noncontributory. PHYSICAL EXAMINATION: VITAL SIGNS: Temperature is 98.1, pulse is 74, blood pressure 131/73, respirations 20, O2 saturation is 95%. Height is 5 feet 2 inches, weight is 175 pounds. BMI is 31.6. GENERAL: The patient is lying in bed, comfortable, and in no acute distress. HEENT: Atraumatic and normocephalic. Anicteric sclerae. Moist mucosa. [place] conjunctivae. No oral lesions. NECK: No JVD, anterior and posterior adenopathy, thyromegaly, or bruits. CARDIOVASCULAR: S1 and S2 regular. No murmurs, rubs or gallops. LUNGS: Clear to auscultation bilaterally. No wheezes, rales, or rhonchi. ABDOMEN: Bowel sounds are positive. Soft, nontender and nondistended. No hepatosplenomegaly. No rebound and no guarding. EXTREMITIES: No cyanosis, clubbing, or edema. NEUROLOGIC: No facial asymmetry. Tongue is midline. No uvula deviation. Power is 5/5 upper extremities and lower extremities. Sensation intact in upper extremities and lower extremities. PSYCHIATRIC: She is awake, alert and oriented x3. No anxiety or depression. She has normal affect. GENITOURINARY: No CVA tenderness. VASCULAR: 2+ pulses in the carotid pulses and pedal pulses. SKIN: No erythema or nodules. SPINE: Shows normal curvature. LABORATORY DATA: White count of 21, hemoglobin is 13, and platelets count is 375. INR is 1. Chemistry done shows a sodium 141, potassium is 3.7 and creatinine is 1. Calcium is 10.9. The patient has an albumin of 3.9. Urine shows glucose is negative, ketones are negative, , leukocyte is trace, influenza is negative. Chest x-ray shows right lower lobe consolidation and left upper lobe air space disease. An EKG done shows heart rate of 103, sinus tachycardia. CT of the chest done, no CTA evidence of pulmonary embolism. There is little interval change in the right lower lobe consolidation and air space disease in the superior segment of the left lower lobe. An echo shows dilated RV and RA, a ndezplcf-fa-muvbrv TR, a xszinjxe-qz-jowviz pulmonary hypertension. ASSESSMENT: 1. Anxiety. 2. Chronic obstructive pulmonary disease. 3. Hospital-acquired pneumonia. 4. Dyslipidemia. 5. Coronary artery disease status post coronary artery bypass grafting. 6. Axspsbmf-ii-sifnyv tricuspid regurgitation. 7. Ivolcsip-bz-xlufvn pulmonary hypertension. PLAN: The patient is going to be admitted to the hospital. She is on aspirin. She has anxiety, I will place her on Ativan. The patient has been placed on Bactrim for possible PCP. The patient is on Cardizem, this will be continued, is going to continue with calcium for her osteoporosis prevention. She is on Solu-Medrol for her COPD. The Legionella of the urine has been ordered. The patient is receiving nebulizer treatments. She is on Pulmicort. Heart healthy diet. The patient is breathing better. Patient is on a heart healthy diet. We will order physical therapy. EKG shows heart rate of 103, sinus tachycardia, QTC is 497. Poor EKG done, but non specific ST changes. Maximilian Blackwood MD
--- NOTE | 2018-03-08 16:03 | PN ---
DATE: 03/08/2018 SUBJECTIVE: The patient is seen lying in bed on telemetry. She feels somewhat better. Her dyspnea is improved today, she has less wheezing. MEDICATIONS: Her current medications include aspirin, Ativan, Cardizem CD 240 mg daily, doxycycline, DuoNeb inhaler, Protonix, Pulmicort, Solu-Medrol, and Bactrim. OBJECTIVE: GENERAL: The patient is an overweight elderly woman. VITAL SIGNS: Blood pressure is 130/72 with pulse 74 and sinus, respirations 16. She is afebrile. NECK: No JVD. CHEST: Bilateral scattered rhonchi. HEART: Systolic murmur is present at the left sternal border. ABDOMEN: Soft, obese, and nontender with bowel sounds. EXTREMITIES: No edema. LABORATORY DATA: Potassium 4, BUN and creatinine 21 and 0.9 with a glucose of 228. White count 21.9, hemoglobin and hematocrit 12.6 and 39.1 with platelet count of 367,000. Echocardiogram was reviewed and reveals dilated right ventricle and atria, normal LV-sized systolic function with ivdklssn-pg-ygmnxj tricuspid regurgitation and xwefdoct-ij-didcfg pulmonary hypertension. IMPRESSION: 1. Dyspnea, appears primarily due to chronic obstructive pulmonary disease exacerbation with underlying lung cancer, no clear congestive heart failure noted. 2. Severe tricuspid regurgitation with pulmonary hypertension secondary to chronic obstructive pulmonary disease. 3. No coronary artery disease, status post prior bypass surgery and clinically stable. 4. Paroxysmal atrial fibrillation with no evidence of recent recurrence. Anticoagulation was placed on hold due to a gross hematuria in the past. RECOMMENDATIONS: From a cardiac point standpoint, her current medications should continue. Bronchodilator therapy and steroids should continue as well. With respect to her pulmonary hypertension, conservative management appears most reasonable given her underlying lung cancer. We will be happy to continue following and make further recommendations in the future as needed. Devonte Infante MD
[2018-03-09] MEDS: Sulfamethoxazole/Trimethoprim 240 MG in Dextrose 5% In Water 250 ML IVPB SCH ×3 (02:56→18:13)
[2018-03-09] MEDS: Albuterol-Ipratrop 3 mg / 0.5 (3 ml) UD IH SCH ×4 (04:31→20:58)
[2018-03-09 07:38] LABS: BASO # 0.01 K/mm3 (0.0-2.0); GRAN # 21.1 (1.4-6.5); GRAN % 94.6 % (50.0-68.0); HEMOGLOBIN 12.8 g/dL (12.0-16.0); LYMPH # 0.5 (1.2-3.4); LYMPH % 2.3 % (22.0-35.0); MEAN CELL VOLUME 86.3 fl (80.0-105.0); MEAN CORPUSCULAR HEMOGLOBIN 27.8 pg (25.0-35.0); MEAN CORPUSCULAR HGB CONC 32.2 g/dl (31.0-37.0); MONO # 0.7 (0.1-0.6); MONO % 3.1 % (1.0-6.0); RBC 4.61 10^6/uL (3.5-6.1); RED CELL DISTRIBUTION WIDTH 16.5 % (11.5-14.5); WHITE BLOOD COUNT 22.3 10^3/uL (4.5-11.0)
[2018-03-09] MEDS ORDERED: Albuterol-Ipratrop 3 mg / 0.5 (3 ml) UD IH PRN (07:44)
[2018-03-09 07:57] LABS: ALB/GLOB RATIO 1.1 (1.1-1.8); ALBUMIN 3.6 g/dL (3.0-4.8); ALT/SGPT 37 U/L (7-56); AST/SGOT 25 U/L (14-36); BLOOD UREA NITROGEN 21 mg/dL (7-21); CALCIUM 10.1 mg/dL (8.4-10.5); GFR NON-AFRICAN AMERICAN 54
--- NOTE | 2018-03-09 08:28 | PN ---
DATE: 03/09/2018 SUBJECTIVE: The patient appears quite comfortable this morning. She is not short of breath at rest. PHYSICAL EXAMINATION: VITAL SIGNS (LAST NOTED IN THE COMPUTER): Temperature 98.2, pulse 96, respirations 18, blood pressure 128/56. Oxygen saturation on room air is 95%. HEENT: Normocephalic, atraumatic. No JVD. CARDIOVASCULAR: Positive S1, S2. No S3 gallop. LUNGS: Much less/minimal rhonchi. No wheezing. EXTREMITIES: Mild edema. No cyanosis, no clubbing. Calves are nontender to palpation. GASTROINTESTINAL: Abdomen is soft, nontender and nondistended. Bowel sounds are positive. SKIN: No acute rash. NEUROLOGIC: Exam limited at the present time. IMPRESSION: 1. Chronic obstructive pulmonary disease. 2. Acute bronchitis. 3. Advanced lung cancer. 4. Possible radiation pneumonitis. 5. Paroxysmal atrial fibrillation. PLAN: The patient appears quite comfortable this morning. She is not short of breath at rest. She does state to feeling much better overall. I did discuss the case with the night nurse at length. The night nurse stated the patient had a good night. On physical exam, the patient's bronchospasm continues to resolve. In addition, the alveolar-arterial gradient also continues to resolve. I will continue the current nebulizer treatments and decrease the intravenous steroids this morning. I will also change the DuoNeb treatments to every 6 hours exdylj-dck-upvjz. The patient remains on antibiotic therapy - as per Infectious Disease. Input by Dr. Marti is noted. There are no temperatures noted. Cultures remain negative. Inputs by Cardiology and Oncology are also noted. Clinical status of the patient is significantly improved - compared to the initial presentation. However, given the above, her future status/prognosis does remain guarded. I will discuss the above with the attending physician. Nitesh Larkin MD MTDD
[2018-03-09] MEDS: Budesonide 0.5 mg/2 ml Inhal Susp UD IH SCH ×2 (09:12→20:59)
[2018-03-09] MEDS: MethylPREDNISolone 40 mg Vial IVP SCH ×2 (09:45→21:55)
[2018-03-09] MEDS: diltiaZEM 240 mg/24 Hours CD Cap PO SCH (09:45)
[2018-03-09] MEDS: Calcium-Vit D 250 mg-125 Units Tab UD PO SCH (09:45)
--- NOTE | 2018-03-09 19:53 | PN ---
DATE: 03/09/2018 SUBJECTIVE: The patient is a 77-year-old, seen and examined, sitting in chair, seems to be comfortable. She states her shortness of breath is much better. The patient states she recently had proton therapy and after that she started to have shortness of breath. She came to the emergency room on 03/06/2017 and has been on IV steroids, nebulizer treatment, seems to be doing better. PHYSICAL EXAMINATION VITAL SIGNS: She is afebrile, pulse 80 respirations 20, blood pressure 139/60. LUNGS: Bilateral few expiratory rhonchi. Decreased breath sounds at bases. HEART: S1, S2, audible. ABDOMEN: Soft. Nontender. No rebound. No guarding. NEUROLOGIC: The patient is awake, alert, and oriented. Able to communicate. LABORATORY DATA: WBC 22.3, hemoglobin 12, hematocrit 39, and platelet 420. Chemistries: Sodium 138, potassium 3.8, chloride 105, CO2 26, BUN 21, creatinine 1, blood sugar 145. Flu test is negative. Blood culture and urine cultures are negative. ASSESSMENT AND PLAN: 1. History of carcinoma of the lung, status post proton therapy. 2. Chronic obstructive pulmonary disease. 3. History of pulmonary hypertension. 4. Tricuspid regurgitation. 5. radiation pneumonitis. 6. Paroxysmal atrial fibrillation. 7. Anxiety disorder. PLAN: Currently, the patient is on Bactrim, she is on aspirin 81 daily, she is on diltiazem, she is on doxycycline, she is on nebulizer treatment, she is on Protonix, she is getting Solu-Medrol 30 mg every 12 hours. We will follow up her CBC and CMP in a.m. Roberto Wilde MD
--- NOTE | 2018-03-09 23:39 | PN ---
DATE: 03/09/2018 SUBJECTIVE: The patient is in bed, in no acute distress, and nontoxic. PHYSICAL EXAMINATION VITAL SIGNS: Temperature is 98, blood pressure is 120/70, respiratory rate of 16. HEENT: Unremarkable. NECK: Supple. LUNGS: Decreased breath sounds. HEART: Normal S1, S2. ABDOMEN: Soft, nontender. LABORATORY DATA: Reveals white count of 22,000; platelets of 420. Procalcitonin of 1.12. Urinalysis is noted. Legionella is negative. Influenza is negative. Microbiology reveals MRSA is negative. Blood cultures are negative. REVIEW OF ORDERS: Reveals the patient to be on Bactrim, Solu-Medrol, doxycycline. Dr. Larkin's note is reviewed. ASSESSMENT AND PLAN: This is a 77-year-old with sepsis, with healthcare-associated pneumonia, lung cancer, coronary artery disease, breast cancer, mastectomy, chronic obstructive pulmonary disease, on IV Bactrim and oral doxycycline, day #3, waiting for further workup. The patient was on a tapering dose of steroid as outpatient. Initially, started at 80 mg a day. The patient is on Solu-Medrol. We will follow with you. Marino Madera MD
[2018-03-10] MEDS: Sulfamethoxazole/Trimethoprim 240 MG in Dextrose 5% In Water 250 ML IVPB SCH ×3 (01:29→18:32)
[2018-03-10] MEDS: Albuterol-Ipratrop 3 mg / 0.5 (3 ml) UD IH SCH ×4 (03:00→20:05)
[2018-03-10] MEDS: Pantoprazole 40 mg EC Tab PO SCH ×2 (04:36→06:41)
[2018-03-10] MEDS: Budesonide 0.5 mg/2 ml Inhal Susp UD IH SCH ×2 (07:43→20:05)
[2018-03-10 08:02] LABS: BASO # 0.02 K/mm3 (0.0-2.0); BASO % 0.1 % (0.0-3.0); GRAN # 20.2 (1.4-6.5); GRAN % 95.1 % (50.0-68.0); HEMOGLOBIN 13.1 g/dL (12.0-16.0); LYMPH # 0.6 (1.2-3.4); LYMPH % 2.7 % (22.0-35.0); MEAN CELL VOLUME 86.7 fl (80.0-105.0); MEAN CORPUSCULAR HEMOGLOBIN 27.6 pg (25.0-35.0); MEAN CORPUSCULAR HGB CONC 31.8 g/dl (31.0-37.0); MEAN PLATELET VOLUME 9.3 fl (7.0-11.0); MONO # 0.5 (0.1-0.6); MONO % 2.1 % (1.0-6.0); RBC 4.75 10^6/uL (3.5-6.1); RED CELL DISTRIBUTION WIDTH 16.6 % (11.5-14.5); WHITE BLOOD COUNT 21.3 10^3/uL (4.5-11.0)
[2018-03-10 08:23] LABS: ALB/GLOB RATIO 1.2 (1.1-1.8); ALBUMIN 3.8 g/dL (3.0-4.8); ALT/SGPT 45 U/L (7-56); AST/SGOT 26 U/L (14-36); BLOOD UREA NITROGEN 21 mg/dL (7-21); GFR NON-AFRICAN AMERICAN 54
[2018-03-10] MEDS: MethylPREDNISolone 40 mg Vial IVP SCH ×2 (09:35→21:00)
[2018-03-10] MEDS: diltiaZEM 240 mg/24 Hours CD Cap PO SCH (09:36)
[2018-03-10] MEDS: Calcium-Vit D 250 mg-125 Units Tab UD PO SCH (09:37)
--- NOTE | 2018-03-10 11:44 | PN ---
DATE: 03/10/2018 SUBJECTIVE: The patient appears very comfortable this morning. She is not short of breath at rest. She is out of bed, sitting in the chair. PHYSICAL EXAMINATION: VITALS: (Last noted in the computer): Temperature is 97.9, pulse 79, respirations 18/20, blood pressure 134/73. Oxygen saturation on room air is 95%. HEENT: Normocephalic, atraumatic. No JVD. CARDIOVASCULAR: Positive S1, S2. No S3 gallop. LUNGS: Much less/minimal rhonchi. No wheezing. EXTREMITIES: Mild edema. No cyanosis, no clubbing. Calves are nontender to palpation. GI: Abdomen is soft, nontender and nondistended. Bowel sounds are positive. SKIN: No acute rash. NEUROLOGIC: Exam limited at the present time. IMPRESSION: 1. Chronic obstructive pulmonary disease. 2. Acute bronchitis. 3. Advanced lung cancer. 4. Possible radiation pneumonitis. 5. Paroxysmal atrial fibrillation. PLAN: The patient appears very comfortable this morning. She is not short of breath at rest. She is out of bed, sitting in the chair. She does state to feeling much better overall. I did discuss the case with the night nurse at length. The night nurse stated that the patient had a very good night. On physical exam, there is only minimal bronchospasm noted. In addition, the oxygen saturation on room air is now 95%. I will continue the current nebulizer treatments and low-dose intravenous steroids (decreased yesterday) for now. The patient remains on antibiotic therapy - as per Infectious Disease. There are no temperatures noted. Repeat labs are pending. Clinical status of the patient appears significantly improved - compared to initial presentation. However, given the above, the future status/prognosis for this patient does remain somewhat guarded. I will discuss the above with the attending physician. Nitesh Larkin MD
--- NOTE | 2018-03-10 15:02 | PN ---
DATE: 03/10/2018 SUBJECTIVE: The patient is in bed, no acute distress. She is less short of breath. She is comfortable. The patient's son is at the bedside. PHYSICAL EXAMINATION: VITAL SIGNS: Temperature is 97, blood pressure is 140/70, respiratory rate of 18, heart rate of 79. HEENT: Unremarkable. NECK: Supple. LUNGS: Have decreased breath sounds. HEART: Normal S1, S2. ABDOMEN: Soft. LABORATORY DATA: Reveals a white count of 21,300. Chemistries reveals a BUN of 21. Creatinine is 1. Urinalysis is noted and serology is noted. Urine antigen is negative for Legionella. Influenza is negative. Microbiology, MRSA is not detected. Blood cultures are negative. ASSESSMENT AND PLAN: This is a 77-year-old with sepsis, healthcare-associated pneumonia, lung cancer, coronary artery disease, breast cancer, mastectomy, chronic obstructive lung disease, on intravenous Bactrim and oral doxycycline. Today is day #4. The patient had been on high-dose steroids and tapering dose, would complete 7 days of Bactrim, follow the urinalysis and creatinine closely, toxicity of Bactrim. The patient is also on Solu-Medrol. We are awaiting for Aspergillus workup, cryptococcal workup, Histoplasma, and Fungitell workup. We will follow closely with you. Case discussed with the patient's son. The patient's case discussed also with Dr. Larkin at length. Marino Madera MD
--- NOTE | 2018-03-10 21:02 | PN ---
DATE: 03/10/2018 SUBJECTIVE: The patient is 77-year-old, seen and examined sitting in chair, seems to be comfortable, still get shortness of breath on walking. No cough or congestion noted. PHYSICAL EXAMINATION: VITAL SIGNS: Afebrile. Pulse 59, respirations 18, blood pressure 143/74. LUNGS: Bilateral decreased breath sounds. Few soft crackles at right lung base. HEART: S1 and S2 audible. ABDOMEN: Soft and nontender. No rebound, no guarding. NEUROLOGIC: She is awake, alert and oriented. Able to communicate. Bilateral leg, no edema. LABORATORY DATA: WBC is 21.3, hemoglobin 13, hematocrit 41, platelets 449. Chemistry: Sodium 139, potassium 4.1, chloride 105, CO2 of 25, BUN 21, creatinine 1, blood sugar 140. ASSESSMENT: 1. History of carcinoma of lung. 2. Status post photon therapy. 3. Probably radiation pneumonitis. 4. Chronic obstructive pulmonary disease. 5. Hypertension. 6. Hyperlipidemia. 7. Tricuspid regurgitation. 8. Paroxysmal atrial fibrillation. PLAN: Currently, the patient is on doxycycline. She is getting on tapering dose of steroids. She is on Bactrim. She is on GI and DVT prophylaxis. Roberto Wilde MD
[2018-03-11] MEDS: Sulfamethoxazole/Trimethoprim 240 MG in Dextrose 5% In Water 250 ML IVPB SCH ×3 (02:55→17:44)
--- NOTE | 2018-03-11 03:07 | PN ---
DATE: 03/10/2018 ONCOLOGY PROGRESS NOTE: LOCATION: The patient is in room 570, bed 2. SUBJECTIVE: This is a 77-year-old female with stage IV non-small cell lung carcinoma with metastatic disease in the left upper lobe of the lung and the right lower lobe of the lung, status post proton beam therapy to both areas with a background history of having bypass surgery along with fractured the sternum from osteoporosis. Currently, she was admitted with progressive shortness of breath while on steroids for radiation pneumonitis that was prescribed as an outpatient. The patient has on been intermittent steroids now since 10/2017, 11/2017. On admission, patient's CAT scan showed extensive infiltrates in the upper lobe and the right lower lobe consistent with pneumonitis with probably superimposed opportunistic infection as well for which the patient was started on broad-spectrum antibiotics, biggest concern being pneumocystis. The patient has been empirically started on Bactrim along with p.o. doxycycline, has improved dramatically over the last few days. She is on tapering doses of Solu-Medrol. Subjectively, the patient is sitting out of bed in the chair, in no acute distress, less short of breath, more comfortable, still on oxygen, family is at the bedside. PHYSICAL EXAMINATION: VITAL SIGNS: Stable. T-max is 98.4, blood pressure is 140/70, respirations 19, heart rate is 79. HEENT: Head is normocephalic and atraumatic. Scar tissues are noted. Examination of the oropharynx reveals no oropharyngeal lesions. NECK: Supple. There is no adenopathy. No jugular venous distention noted. The patient had significant kyphoscoliosis. LUNGS: Reveals scattered wheezes, less rhonchi at this time, decreased breath sounds at the bases are noted. HEART: Reveals S1 and S2 to be normal. No gallop or murmur is heard. ABDOMEN: Soft, nontender, protuberant. No rebound, rigidity, or guarding is noted. EXTREMITIES: Reveals no cyanosis, clubbing or edema. LABORATORY DATA: Reveals white count of 21,000. BUN is 21, creatinine is 1.1. Urinalysis noted. Serology is noted. Urine antigen is negative for Legionella. Influenza negative. MRSA is not detected. Blood cultures are negative. MEDICATIONS: The patient's medications were reviewed and they include the following; she is on aspirin 81 mg daily, lorazepam 1 mg t.i.d. p.r.n., diltiazem 240 mg daily, doxycycline 100 mg every 12 hours. She is on DuoNeb every 2 hours p.r.n. which has been now made every 6 hours as she is feeling better. She is on Mycelex delilah 10 mg q.i.d. She is on Caltrate with D 1 tab p.o. daily. She is on pantoprazole 40 mg p.o. daily. She is on budesonide 0.5 mg every 12 hours. She is on methylprednisolone 30 mg IV every 12 hours. She is on Bactrim 240 mg IV every 8 hours. ASSESSMENT, NOTES, AND PLAN: The patient has stage IV non-small cell lung carcinoma, biopsy proven adenocarcinoma, background history of chronic obstructive pulmonary disease, emphysema, has radiation pneumonitis with probably superimposed opportunistic pneumonitis, on broad-spectrum antibiotics improving on current regimen. Plan is to continue the current regimens. I discussed the patient and the family in great detail. I reviewed with them also the letter that I received from Dr. Logan Rios who is the proton beam radiation oncologist from [facility] about his impression when he had seen the patient just few days prior to the admission when he had gone overall the PET CT scans and CAT scan that she has had at their facility, and his opinion is that the tumor is better, but the patient could have significant radiation pneumonitis as the result of the treatment and probably coexisting opportunistic infection that could have accounted for the decompensation of the patient. We will continue to follow up with the patient very carefully and make appropriate recommendations. Cardiology is also involved the care along with the pulmonary intervention. Plan is to taper the Solu-Medrol gradually, it has been done by the Pulmonary Service and patient may have to go home on her last visit and I will the patient about this. Routine post exam instructions have been given to the patient. The patient was counseled also at great length regarding her overall prognosis. Please make a note this is a complex patient with multiple comorbid medical issues. Vicki Restrepo MD [facility] # [id number]
[2018-03-11] MEDS: Pantoprazole 40 mg EC Tab PO SCH (05:00)
[2018-03-11] MEDS: Albuterol-Ipratrop 3 mg / 0.5 (3 ml) UD IH SCH ×4 (05:06→19:30)
[2018-03-11] MEDS: Budesonide 0.5 mg/2 ml Inhal Susp UD IH SCH ×2 (08:01→19:30)
--- NOTE | 2018-03-11 09:40 | PN ---
DATE: 03/08/2018 LOCATION: The patient is in room 269, bed 2. SUBJECTIVE: The patient is examined. The patient is sitting out of bed, in the chair, appears to be comfortable. Family is at the bedside. She is able to walk from the chair to the bathroom, and from the chair, she is able to go back to the bed with the oxygen on, feeling significantly improved compared to yesterday as far as shortness of breath at rest is concerned. Wheezing also appears to be slightly improved. She has been taking the nebulizer treatments every 4 hours around the clock. No significant back pain. No fevers. No chills. PHYSICAL EXAMINATION: VITAL SIGNS: Stable. T-max is 98.4, pulse is 74, respirations 18-20, blood pressure is 131/73, and O2 sat on nasal cannula is 95%. HEENT: Reveals it to be normocephalic, atraumatic. Conjunctivae clear. The patient still has deras facies. CARDIOVASCULAR SYSTEM: Reveals PMI to be in the fifth intercostal space, inside the midclavicular line. S1, S2 normal. No gallop or murmur is heard. LUNGS: Reveal improved breath sounds at the bases with less rhonchi and less wheezing. ABDOMEN: Reveals it to be soft, nontender. No rebound, rigidity, or guarding is noted. EXTREMITIES: Reveal mild edema. No cyanosis, no clubbing. Calves are nontender. SKIN: Reveals no skin rashes. No acute rashes. Skin turgor is within normal limits. NEUROLOGIC: Reveals higher functions to be normal. No focal deficits are noted. GENITOURINARY: Rectal is deferred. MEDICATIONS: The patient's medications were reviewed, and she is still on the same medications that were initiated yesterday. The medications include the following: The patient is on aspirin 81 mg daily, lorazepam 1 mg t.i.d. p.r.n., diltiazem 240 mg p.o. daily. She is on doxycycline 100 mg p.o. every 12 hours. She is on DuoNeb 3 mL every 4 hours around the clock. She is on clotrimazole 10 mg four times a day started today, and she is on calcium 1 tablet p.o. daily, vitamin D along with calcium 1 tablet daily. She is on pantoprazole 40 mg p.o. daily. She is on budesonide 0.5 mg inhaled every 12 hours. She is on methylprednisolone 40 mg every 12 hours. She is on Bactrim 240 mg IV piggyback every 8 hours. LABORATORY DATA: Lab data from today was reviewed. White count is 21,000, hemoglobin is 12.6, hematocrit 39.1, platelet count is 364,000. Chemistries are within normal limits except the sugars are elevated secondary to the steroids. We need to watch her, may have to put her on low-dose insulin coverage. LDH is elevated at 870. ASSESSMENT, NOTES, AND PLAN: The patient has bilateral infiltrates, probably infectious, superimposed on radiation pneumonitis, on broad-spectrum antibiotics. Stage IV [id number] carcinoma of the lung, status post proton beam therapy. Coronary artery bypass surgery with coronary artery disease. Kyphoscoliosis with multiple factors of the thoracic spine. History of emphysema and chronic obstructive pulmonary disease. Plan is to continue the current treatments and gradually taper the steroids. Encourage more physical therapy, so that she getting the strength back in the legs and evaluate for rehab while continuing the antibiotics. Routine post exam instructions have been given to the patient. Blood work for a.m. had been requested. Vicki Restrepo MD
--- NOTE | 2018-03-11 09:52 | PN ---
DATE: 03/09/2018 ONCOLOGY PROGRESS NOTE LOCATION: The patient is in room 570, bed #2. SUBJECTIVE: The patient is subjectively seen sitting out of bed in the chair with family around. She says her breathing is much improved. She is about 50% better. No significant coughing. Overall function syed, she is able to get up and go to the bathroom. She was able to do some therapy and she is prepared for going to the TCU to continue the therapy while on IV and p.o. antibiotics. Denies any history of fevers, chills, nausea, vomiting, headache. PHYSICAL EXAMINATION: VITAL SIGNS: Stable. Pulse 80, respirations 20, blood pressure 139/60. LUNGS: Reveal bilateral expiratory rhonchi. Bilateral decreased breath sounds at the bases. CARDIOVASCULAR: Reveals S1, S2 to be normal. Gallop is heard. ABDOMEN: Soft, protuberant. No rebound, rigidity, or guarding is noted. MUSCULOSKELETAL: The patient has significant kyphoscoliosis which could also be accounting for some of the breathing issues. NEUROLOGIC: Reveals the patient to be awake, alert, and oriented. No acute distress. The patient's back pain is significantly less now, may be because of the steroids the patient is on. LABORATORY DATA: Reveals white count of 23,000, hemoglobin is 12, hematocrit 39, platelet count of 420,000. Chemistry reveal sodium of 136, K of 3.8, chloride 104, CO2 of 26, BUN of 21, creatinine 1, blood sugar 145. Stool test is negative. Blood cultures and urine cultures are negative. MEDICATIONS: Reviewed. She is still on doxycycline 100 every 12 hours along with that the patient is on Bactrim as well which is 240 mg given twice a day. The patient is on methylprednisolone which is being slowly tapered at 30 mg IV every 12 hours. She is on budesonide 0.5 mg every 12 hours, Protonix 40 mg daily. She is on Os-Barron with vitamin D 250 b.i.d. She is on Mycelex Mi 4 times a day, DuoNeb inhalation every 6 hours. She is on Cardizem CD 240 mg p.o. daily for paroxysmal atrial fibrillation. She is on Ativan, lorazepam 1 mg t.i.d. for anxiety, aspirin 81 mg p.o. daily. ASSESSMENT NOTES AND PLAN: The patient has a combination of radiation pneumonitis, opportunistic lung infection such as atypical organism or even pneumocystis at this time which could explain why the patient is improving on IV Bactrim. We will continue current medication till the patient improves and try to the patient for TCU where she can get rehab while trying to taper the steroids gradually. Please make a note, this is a complex patient with multiple comorbid medical issues. The patient's family were also have lot of questions, but when asked to me, I answered to the best of my ability. Time spent with the patient today was an excess of 55 minutes. Vicki Restrepo MD
[2018-03-11] MEDS: MethylPREDNISolone 40 mg Vial IVP SCH ×2 (10:06→21:02)
[2018-03-11] MEDS: Calcium-Vit D 250 mg-125 Units Tab UD PO SCH (10:07)
[2018-03-11] MEDS: diltiaZEM 240 mg/24 Hours CD Cap PO SCH (10:07)
--- NOTE | 2018-03-11 12:02 | PN ---
DATE: 03/11/2018 SUBJECTIVE: The patient appears comfortable this morning. She is not short of breath at rest. She is out of bed, sitting in the chair. PHYSICAL EXAMINATION: VITAL SIGNS: Temperature is 98.2, pulse 81, respirations 18/20, blood pressure 114/83. Oxygen saturation on room air is 96%. HEENT: Normocephalic, atraumatic. No JVD. CARDIOVASCULAR: Positive S1, S2. No S3 gallop. LUNGS: Minimal/less rhonchi. Few scattered wheezes are also heard this morning. EXTREMITIES: Mild edema. No cyanosis, no clubbing. Calves are nontender to palpation. GASTROINTESTINAL: Abdomen is soft, nontender and nondistended. Bowel sounds are positive. SKIN: No acute rash. NEUROLOGIC: Exam limited at the present time. IMPRESSION: 1. Chronic obstructive pulmonary disease. 2. Acute bronchitis. 3. Advanced lung cancer. 4. Possible radiation pneumonitis. 5. Paroxysmal atrial fibrillation. PLAN: The patient appears quite comfortable this morning. She is out of bed, sitting in the chair. She is not short of breath at rest. She does state to feeling much better overall. On physical exam, mild bronchospasm persists. However, there is a decrease in the alveolar-arterial gradient. I will continue the current nebulizer treatments and low-dose intravenous steroids for now. The patient remains on antibiotic therapy - as per Infectious Disease. There are no temperatures noted. Serologies are pending. Input by Oncology is also noted. Clinical status of the patient is significantly improved - compared to the initial presentation. However, given the above, the future status/prognosis for this patient does remain guarded. I will discuss the above with the attending physician. Nitesh Larkin MD [facility]TD[facility]
--- NOTE | 2018-03-11 16:51 | CP.PCM.PN ---
Subjective - Date & Time of Evaluation Date of Evaluation: 03/11/18 Time of Evaluation: 09:45 - Subjective Subjective: Still has some weakness when walking, no fevers, cough is dry, shortness of breath is still there but a little better. Objective - Vital Signs/Intake and Output Vital Signs (last 24 hours): Temp Pulse Resp BP Pulse Ox 98.2 F 81 20 114/83 96 03/11/18 06:00 03/11/18 06:00 03/11/18 06:00 03/11/18 06:00 03/11/18 06:00 Intake and Output: 03/11/18 03/11/18 06:59 18:59 Intake Total 360 Balance 360 - Medications Medications: Current Medications Albuterol/Ipratropium (Duoneb 3 Mg/0.5 Mg (3 Ml) Ud) 3 ml IH [id number] [facility] Last Admin: 03/11/18 13:43 Dose: 3 ml Albuterol/Ipratropium (Duoneb 3 Mg/0.5 Mg (3 Ml) Ud) 3 ml IH Q2H PRN PRN Reason: Shortness of Breath Aspirin (Aspirin Chewable) 81 mg PO DAILY [facility] Last Admin: 03/11/18 10:07 Dose: 81 mg Budesonide (Pulmicort Respules) 0.5 mg IH [id number] [facility] Last Admin: 03/11/18 08:01 Dose: 0.5 mg Calcium/Vitamin D (Oscal-D 250 Mg-125 Units Tab) 1 tab PO DAILY [facility] Last Admin: 03/11/18 10:07 Dose: 1 tab Clotrimazole (Mycelex Mi) 10 mg MT QID [facility] Last Admin: 03/11/18 15:21 Dose: Not Given Diltiazem HCl (Cardizem Cd) 240 mg PO DAILY [facility] Last Admin: 03/11/18 10:07 Dose: 240 mg Doxycycline Hyclate (Doryx) 100 mg PO Q12 [facility]; Protocol Stop: 03/12/18 22:01 Last Admin: 03/11/18 10:08 Dose: 100 mg Trimethoprim/Sulfamethoxazole (240 mg/ Dextrose) 250 mls @ 166.667 mls/hr IVPB Q8H [facility]; Protocol Stop: 03/14/18 18:01 Last Admin: 03/11/18 10:22 Dose: 166.667 mls/hr Lorazepam (Ativan) 1 mg PO TID PRN; Protocol PRN Reason: Anxiety Last Admin: 03/11/18 10:19 Dose: 1 mg Methylprednisolone (Solu-Medrol) 30 mg IVP Q12 [facility] Last Admin: 03/11/18 10:06 Dose: 30 mg Pantoprazole Sodium (Protonix Ec Tab) 40 mg PO 0600 [facility] Last Admin: 03/11/18 05:00 Dose: 40 mg - Labs Labs: 03/10/18 07:00 03/10/18 07:00 PT 11.4 SECONDS (9.4-12.5) 03/06/18 18:55 INR 1.00 03/06/18 18:55 APTT 26.1 Seconds (25.1-36.5) 03/06/18 18:55 - Constitutional Appears: Chronically Ill - Head Exam Head Exam: NORMAL INSPECTION - ENT Exam ENT Exam: Mucous Membranes Moist - Neck Exam Neck Exam: absent: Lymphadenopathy, Meningismus - Respiratory Exam Respiratory Exam: Decreased Breath Sounds - Cardiovascular Exam Cardiovascular Exam: +S1, +S2 - GI/Abdominal Exam GI & Abdominal Exam: Soft. absent: Tenderness Assessment and Plan - Assessment and Plan (Free Text) Plan: Assessment Sepsis due to HCAP, atypical lung CA CAD S/P CABG S/P mastectomy atrial fibrillation history of bronchitis COPD anxiety Plan Continue IV Bactrim and PO Doxycycline day 5 of 7 days PCT is low will continue to monitor clinically
--- NOTE | 2018-03-11 18:45 | PN ---
DATE: 03/11/2018 SUBJECTIVE: The patient has no complaints of any chest pain or shortness of breath. No headaches or dizziness. PHYSICAL EXAMINATION: VITAL SIGNS: Temperature is 98.2, pulse of 81, blood pressure 114/83, respirations 20. GENERAL: The patient is lying in bed, flat, comfortable. HEENT: No oral lesion. Anicteric sclerae. Moist mucosa. NECK: No JVD, adenopathy, or thyromegaly. CARDIOVASCULAR: S1 and S2, regular. No murmurs, rubs, or gallops. LUNGS: Clear to auscultation bilaterally. No wheeze, rales, or rhonchi. ABDOMEN: Bowel sounds are positive, soft, nontender and nondistended. EXTREMITIES: no cyanosis, clubbing or edema. LABORATORY DATA: White count of 21.3, hemoglobin 13.1. Creatinine is 1.0. ASSESSMENT: 1. Hospital-acquired pneumonia. 2. Non-small cell lung carcinoma stage IV. 3. Hypertension. 4. Dyslipidemia. 5. Paroxysmal atrial fibrillation. 6. Tricuspid regurgitation. PLAN: The patient is currently on Ativan for anxiety. She is going to continue her aspirin. She is on Cardizem for paroxysmal atrial fibrillation. She is on doxycycline for antibiotics. She is receiving calcium carbonate and vitamin D for her osteoporosis prevention. She is on Solu-Medrol for her breathing. She does state that she is feeling better. Her white counts remain elevated. She had blood cultures that have been negative. The patient was seen by physical therapy few days ago and was advised that she go home or that she may go to TCU that is accepted. We will repeat her blood work tomorrow to see if her white cell count has improved. Maximilian Blackwood MD
[2018-03-11 22:21] VITALS: RESP 20
[2018-03-12] MEDS: Albuterol-Ipratrop 3 mg / 0.5 (3 ml) UD IH SCH ×3 (01:12→13:16)
--- NOTE | 2018-03-12 01:39 | PN ---
DATE: 03/11/2018 ONCOLOGY PROGRESS NOTE LOCATION: The patient is in room 570, bed 2. SUBJECTIVE: The patient has no new complaints today. She is sitting out of bed in a chair. Denies any significant chest pain, shortness of breath, headaches, or dizziness. The patient is able to walk to the bathroom. Denies using a nasal cannula, which is a good sign. PHYSICAL EXAMINATION: VITAL SIGNS: Stable. T-max is 98.4, pulse is 81, blood pressure is 114/83, respirations 20 per minute. GENERAL: The patient appears to be comfortable, not using her accessory muscles of respiration. HEENT: Head is normocephalic, atraumatic. Conjunctivae pale. Sclerae are anicteric. Examination of the oropharynx reveals minimal thrush. The patient has been using Mycelex. No other oropharyngeal lesions are seen. No signs of ulceration. NECK: Supple. There is no adenopathy. No jugular venous distention noted. LUNGS: Clear to percussion and auscultation without any wheezes or rhonchi. CARDIOVASCULAR SYSTEM: Reveals S1 and S2 to be normal. No gallop or murmur is heard. ABDOMEN: Soft, nontender. Bowel sounds are present. The patient has severe kyphoscoliosis, which makes the abdomen little bit more prominent. EXTREMITIES: Reveal no cyanosis, clubbing, or edema. LABORATORY DATA: Reveals white count of 21.3 and hemoglobin 13. Creatinine is 1. ASSESSMENT, NOTES, AND PLAN: The patient has both radiation pneumonitis and atypical pneumonia for which she is on doxycycline and Bactrim, which is being continued. She has hypertension; dyslipidemia; coronary artery disease, status post coronary artery bypass surgery; paroxysmal atrial fibrillation; tricuspid regurgitation. Plan is to continue Ativan for anxiety. She will continue on aspirin, Cardizem for paroxysmal atrial fibrillation, and doxycycline and Bactrim for her infection. The patient is on calcium carbonate and vitamin D for osteoporosis treatment; Solu-Medrol for her breathing. The patient's white count remains slightly elevated, probably related to the steroids, which will be gradually tapered. The patient has been doing physical therapy in the acute side and was advised that the patient could benefit from continuing physical therapy, especially for proximal muscle weakness related to the use of the steroids, especially of her upper muscles in the thighs and the pelvic muscles, so that exercising in the transitional care unit twice a day will be of tremendous value to her before she goes home. In the meantime, we will continue the antibiotics and start tapering the steroids gradually. Routine post-exam instructions have been given to the patient. Time spent with the patient is more than 35 minutes. Please make a note, this is a complex patient with multiple comorbid medical issues. Vicki Restrepo MD
[2018-03-12] MEDS: Sulfamethoxazole/Trimethoprim 240 MG in Dextrose 5% In Water 250 ML IVPB SCH ×2 (04:10→11:07)
[2018-03-12] MEDS: Pantoprazole 40 mg EC Tab PO SCH (05:18)
[2018-03-12 07:43] LABS: HEMOGLOBIN 13.4 g/dL (12.0-16.0); MEAN CELL VOLUME 85.6 fl (80.0-105.0); MEAN CORPUSCULAR HGB CONC 32.8 g/dl (31.0-37.0); MEAN PLATELET VOLUME 9.2 fl (7.0-11.0); RBC 4.78 10^6/uL (3.5-6.1); RED CELL DISTRIBUTION WIDTH 16.4 % (11.5-14.5); WHITE BLOOD COUNT 19.5 10^3/uL (4.5-11.0)
[2018-03-12 08:03] LABS: ALB/GLOB RATIO 1.2 (1.1-1.8); ALBUMIN 3.7 g/dL (3.0-4.8); CALCIUM 9.9 mg/dL (8.4-10.5)
[2018-03-12 08:10] VITALS: PULSE 84; TEMP 98.2; O2SAT 96
[2018-03-12 08:11] VITALS: BP 150/75
[2018-03-12] MEDS: Budesonide 0.5 mg/2 ml Inhal Susp UD IH SCH (08:18)
[2018-03-12 08:36] LABS: ASPERGILLUS SPP NOT DETECTED
[2018-03-12] MEDS ORDERED: MethylPREDNISolone 40 mg Vial IVP SCH (10:00)
--- NOTE | 2018-03-12 11:03 | PN ---
DATE: 03/12/2018 PULMONARY NOTE SUBJECTIVE: The patient appears very comfortable this morning. She is out of bed, sitting in the chair. She is not short of breath. PHYSICAL EXAMINATION: VITAL SIGNS: Temperature is 97, pulse 78, respirations 18/20, blood pressure 120/80. Oxygen saturation on room air is 95%. HEENT: Normocephalic, atraumatic. No JVD. CARDIOVASCULAR: Positive S1, S2. No S3 gallop. LUNGS: Very minimal/much less rhonchi. No wheezing this morning. GI: Abdomen is soft, nontender and nondistended. Bowel sounds are positive. EXTREMITIES: Mild edema. No cyanosis, no clubbing. Calves are nontender to palpation. SKIN: No acute rash. NEUROLOGIC: Exam limited at the present time. IMPRESSION: 1. Chronic obstructive pulmonary disease. 2. Acute bronchitis. 3. Advanced lung cancer. 4. Possible radiation pneumonitis. 5. Paroxysmal atrial fibrillation. PLAN: The patient appears very comfortable this morning. She is out of bed, sitting in the chair. She is not short of breath at rest. She does state to feeling much better overall. On physical exam, her bronchospasm is now resolving. In addition, the alveolar-arterial gradient is also resolving. I will continue the current nebulizer treatments and decrease the intravenous steroids this morning. The patient remains on antibiotic therapy - as per Infectious Disease. Input by Oncology is also noted. Clinical status of the patient has significantly improved - compared to the initial presentation. However, given the above, the future status/prognosis for this patient does remain guarded. The patient is for transfer to the Transitional Unit - hopefully today. I will discuss the above with the attending physician. Nitesh Larkin MD [facility]
[2018-03-12] MEDS: Calcium-Vit D 250 mg-125 Units Tab UD PO SCH (11:08)
[2018-03-12] MEDS: diltiaZEM 240 mg/24 Hours CD Cap PO SCH (11:08)
--- NOTE | 2018-03-12 13:33 | PN ---
DATE: 03/12/2018 SUBJECTIVE: The patient has no complaints of any chest pain. No shortness of breath. She says she does have cough. She does get shortness of breath at times, says she when she exerts herself. PHYSICAL EXAMINATION: VITAL SIGNS: Temperature is 98.2, pulse of 84, blood pressure 150/75 and respirations 20. GENERAL: The patient is lying in bed, flat, comfortable. HEENT: No oral lesion. Anicteric sclerae. Moist mucosa. NECK: No JVD, adenopathy, or thyromegaly. CARDIOVASCULAR: S1 and S2, regular. No murmurs, rubs, or gallops. LUNGS: Clear to auscultation bilaterally. No wheeze, rales, or rhonchi. ABDOMEN: Bowel sounds are positive, soft, nontender and nondistended. EXTREMITIES: No cyanosis, clubbing or edema. LABORATORY DATA: White count of 19.5 and hemoglobin 13.4. Creatinine is 1.1. ASSESSMENT: 1. Hospital-acquired pneumonia. 2. Non-small cell cancer stage IV. 3. Hypertension. 4. Dyslipidemia. 5. Paroxysmal atrial fibrillation. 6. Tricuspid regurgitation. PLAN: The patient is currently on aspirin daily. She is going to be on Bactrim for antibiotics. She is on Cardizem. She is on nebulizer treatment. She is receiving calcium and vitamin D for osteoporosis. She is on Solu-Medrol by Dr. Larkin. She is on heart healthy diet. She is waiting to go to the Transitional Care Unit. Maximilian Blackwood MD
--- NOTE | 2018-03-12 21:17 | PN ---
DATE: 03/12/2018 SUBJECTIVE: The patient is in bed, no acute distress, nontoxic. PHYSICAL EXAMINATION: VITAL SIGNS: Temperature is 98, blood pressure is 150/70, respiratory rate of 20, heart rate of 78. HEENT: Unremarkable. NECK: Supple. LUNGS: Have decreased breath sounds. HEART: Normal S1, S2. ABDOMEN: Soft. LABORATORY DATA: Reveals a white count of 19,000. Chemistries reveal the patient's creatinine has increased with GFR has decreased to 48. Procalcitonin 0.12 and the urinalysis is noted and serology is noted. Review of Beta-1 3D glucan is less than 31, which is negative. Aspergillus workup is negative and influenza is negative. Crypto antigen is negative. Urinalysis is noted. Serology is also reviewed. Microbiology is reviewed. ASSESSMENT AND PLAN: This is a 77-year-old female with past medical history of lung cancer and breast cancer, admitted with sepsis, healthcare-associated pneumonia atypical. The patient had been on high dose steroids for an extensive period of time. Concerned about opportunistic infection. Unfortunately, the creatinine has increased to 1.1 with a decreasing GFR. Today is day #6 of Bactrim and we will discontinue the Bactrim. I placed the patient on Mepron 750 mg by mouth twice a day. Normal procalcitonin. The patient is also on doxycycline day #6. We will discontinue the Bactrim because of toxicity. The patient is for transfer to transitional care and will follow with you. Marino Madera MD
== END 2018-03-12 16:24 | DRG 871 ==
LOC: ED 16:27 → ERH 18:53 → 2RNO 22:02 → 5RSO 03-09 01:18
PROVIDERS: ADMIT Family Medicine; ATTEND Family Medicine
DX: A41.9 Sepsis, unspecified organism (principal); J18.9 Pneumonia, unspecified organism; J44.0 Chronic obstructive pulmonary disease with (acute) lower respiratory infection; C78.01 Secondary malignant neoplasm of right lung; C78.02 Secondary malignant neoplasm of left lung; J70.0 Acute pulmonary manifestations due to radiation; J44.1 Chronic obstructive pulmonary disease with (acute) exacerbation; M80.80XA Other osteoporosis with current pathological fracture, unspecified site, initial encounter for fracture; J20.9 Acute bronchitis, unspecified; K44.9 Diaphragmatic hernia without obstruction or gangrene; I27.20 Pulmonary hypertension, unspecified; I10 Essential (primary) hypertension; E78.5 Hyperlipidemia, unspecified; I07.1 Rheumatic tricuspid insufficiency; I48.0 Paroxysmal atrial fibrillation; F41.9 Anxiety disorder, unspecified; I25.10 Atherosclerotic heart disease of native coronary artery without angina pectoris; K80.20 Calculus of gallbladder without cholecystitis without obstruction; Y95 Nosocomial condition; M41.9 Scoliosis, unspecified; Y84.2 Radiological procedure and radiotherapy as the cause of abnormal reaction of the patient, or of later complication, without mention of misadventure at the time of the procedure; Z85.3 Personal history of malignant neoplasm of breast; Z79.810 Long term (current) use of selective estrogen receptor modulators (SERMs); Z90.12 Acquired absence of left breast and nipple; Z85.118 Personal history of other malignant neoplasm of bronchus and lung; Z92.3 Personal history of irradiation; Z79.52 Long term (current) use of systemic steroids; Z87.891 Personal history of nicotine dependence; Z95.1 Presence of aortocoronary bypass graft

== ENCOUNTER 2018-03-12 15:56 | Inpatient (IN) | payer OTHER, MEDICARE, BC ==
[2018-03-12 16:52] VITALS: BMI 31.9
[2018-03-12] MEDS ORDERED: Albuterol-Ipratrop 3 mg / 0.5 (3 ml) UD IH PRN (16:55)
[2018-03-12] MEDS: Atovaquone 750 mg/5 ml Susp UD PO SCH (18:17)
[2018-03-12] MEDS: Albuterol-Ipratrop 3 mg / 0.5 (3 ml) UD IH SCH (20:01)
[2018-03-12] MEDS: Budesonide 0.5 mg/2 ml Inhal Susp UD IH SCH (20:01)
[2018-03-12] MEDS: Arformoterol 15 mcg/2 ml Inh Sol IH SCH (20:02)
[2018-03-12] MEDS: MethylPREDNISolone 40 mg Vial IVP SCH (21:31)
[2018-03-12] MEDS ORDERED: Sulfamethoxazole/Trimethoprim 240 MG in Dextrose 5% In Water 250 ML IVPB SCH (22:00)
[2018-03-12] MEDS ORDERED: Tmp-Smz 16 mg-80 mg/ml Inj IVPB SCH (22:00)
[2018-03-12] MEDS ORDERED: Influenza Vaccine 60 mcg/0.5 mL SYR (4YR UP) IM ONE (23:23)
[2018-03-12] MEDS ORDERED: Pneumococcal 23-Valent Vaccine IM ONE (23:23)
[2018-03-13] MEDS: Albuterol-Ipratrop 3 mg / 0.5 (3 ml) UD IH SCH ×4 (01:44→20:56)
[2018-03-13] MEDS: Pantoprazole 40 mg EC Tab PO SCH (05:37)
[2018-03-13 06:27] LABS: BASO # 0.05 K/mm3 (0.0-2.0); BASO % 0.3 % (0.0-3.0); GRAN # 17.95 (1.4-6.5); GRAN % 92.1 % (50.0-68.0); HEMOGLOBIN 13.7 g/dL (12.0-16.0); LYMPH # 0.9 (1.2-3.4); LYMPH % 4.7 % (22.0-35.0); MEAN CELL VOLUME 86.8 fl (80.0-105.0); MEAN CORPUSCULAR HEMOGLOBIN 27.7 pg (25.0-35.0); MEAN CORPUSCULAR HGB CONC 31.9 g/dl (31.0-37.0); MONO # 0.6 (0.1-0.6); MONO % 2.9 % (1.0-6.0); PLATELET COUNT 455 10^3/uL (120.0-450.0); RBC 4.94 10^6/uL (3.5-6.1); RED CELL DISTRIBUTION WIDTH 16.7 % (11.5-14.5); WHITE BLOOD COUNT 19.5 10^3/uL (4.5-11.0)
[2018-03-13 07:07] LABS: ALB/GLOB RATIO 1.3 (1.1-1.8)
[2018-03-13] MEDS: Arformoterol 15 mcg/2 ml Inh Sol IH SCH ×2 (07:10→20:56)
[2018-03-13] MEDS: Budesonide 0.5 mg/2 ml Inhal Susp UD IH SCH ×2 (07:11→20:56)
[2018-03-13 08:12] LABS: BAND 2 % (0-2); LYMPHOCYTE 7 % (22.0-35.0); METAMYELOCYTE 1 %; NEUTROPHIL 90 % (50.0-70.0)
[2018-03-13 08:13] LABS: PLATELET ESTIMATE NORMAL (NORMAL)
[2018-03-13] MEDS: diltiaZEM 240 mg/24 Hours CD Cap PO SCH (10:27)
[2018-03-13] MEDS: Atovaquone 750 mg/5 ml Susp UD PO SCH ×2 (10:28→17:13)
[2018-03-13] MEDS: Calcium-Vit D 250 mg-125 Units Tab UD PO SCH (10:29)
[2018-03-13] MEDS: MethylPREDNISolone 40 mg Vial IVP SCH ×2 (10:30→21:22)
--- NOTE | 2018-03-13 11:28 | PN ---
DATE: 03/13/2018 PULMONARY NOTE SUBJECTIVE: The patient appears quite comfortable this morning. She is not short of breath at rest. PHYSICAL EXAMINATION: VITAL SIGNS: (Last noted in the computer): Temperature is 97.8, pulse 80, respirations 18, blood pressure 129/79. Oxygen saturation on nasal cannula is 96%. HEENT: Normocephalic, atraumatic. No JVD. CARDIOVASCULAR: Positive S1, S2. No S3 gallop. LUNGS: Clear bilaterally this morning. GI: Abdomen is soft, nontender and nondistended. Bowel sounds are positive. EXTREMITIES: Mild edema. No cyanosis, no clubbing. Calves are nontender to palpation. SKIN: No acute rash. NEUROLOGIC: Exam limited at the present time. IMPRESSION: 1. Chronic obstructive pulmonary disease. 2. Acute bronchitis. 3. Advanced lung cancer. 4. Possible radiation pneumonitis. 5. Paroxysmal atrial fibrillation. PLAN: The patient appears very comfortable this morning. She is not short of breath at rest. She does state to feeling much, much better overall. She is now on the transitional unit. On physical exam, her lungs are clear this morning. In addition, there is no significant alveolar-arterial gradient. I will continue the current nebulizer treatments and low-dose intravenous steroids for now. The patient remains on antibiotic therapy - as per Infectious Disease. There are no temperatures noted. I did discuss the case with Dr. Madera this morning. Clinical status of the patient has significantly improved - compared to the initial presentation. However, given the above, the future status/prognosis for this patient does remain guarded. I will discuss the above with the attending physician. Nitesh Larkin MD [facility]
--- NOTE | 2018-03-13 19:07 | CON ---
DATE: 03/13/2018 LOCATION: The patient is seen in room 304. CHIEF COMPLAINT: Weakness in several days. HISTORY OF PRESENT ILLNESS: This is a 77-year-old female with past medical history significant for chronic obstructive lung disease, high cholesterol, anxiety, coronary artery disease, lung cancer, and she was admitted with shortness of breath, was found to have a pneumonia, and now transferred to transitional care and last day at the acute care, the patient's creatinine increased, and the patient was on Bactrim. REVIEW OF SYSTEMS: Reveals the 12-point review of systems is performed. PAST MEDICAL HISTORY: Significant for chronic obstructive lung disease, lung cancer, high cholesterol, anxiety, coronary artery disease, and the patient also had breast cancer, which was her first diagnosis. PAST SURGICAL HISTORY: Significant for mastectomy 20 years ago and cardiac cath and coronary artery bypass graft and that was done by Dr. Ibarra on 05/21/2012. ALLERGIES: THE PATIENT IS ALLERGIC TO MONOSODIUM GLUTAMATE. MEDICATIONS: Reviewed. PHYSICAL EXAMINATION: VITAL SIGNS: The patient's temperature is 98, blood pressure is 130/70, respiratory rate 18. HEENT: Unremarkable. NECK: Supple. LUNGS: Have decreased breath sounds. HEART: Normal S1 and S2. ABDOMEN: Soft, nontender. LABORATORY EXAMINATION: Reveals a white count of 19,000, hemoglobin of 13, platelets of 455. The patient's creatinine is up to 1.2. GFR is 44. Procalcitonin of 0.12. Urinalysis is noted. Serology reveals 1,3-beta-D glucan is negative, and Aspergillus is not detected. Antigen and TCR are not detected, and urine antigen is negative. Influenza is negative. Cryptococcus is negative. ASSESSMENT AND PLAN: This is a 77-year-old female with sepsis with healthcare-associated pneumonia, now off of Bactrim. The patient had received 6 days of Bactrim. 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 Case is discussed with Dr. Larkin, who feels the patient is improving on current therapy, and today is day #7 of doxycycline, and the patient is also on Solu-Medrol, and the patient is on Mepron. We will follow closely with you. Marino Boghossian, MD [facility] # [id number]
--- NOTE | 2018-03-14 01:32 | HP ---
DATE OF EXAM: 03/13/2018 LOCATION: The patient is in room 304. REASON FOR ADMISSION: The patient is admitted to the TCU for deconditioning. The patient was just on the acute side for progressive weakness, lower extremity swelling, shortness of breath, all of which have gotten better with input from Pulmonary, Cardiology,and Radiation Oncology. The patient is now admitted to the TCU for continuation of the treatments with IV Solu-Medrol along with radiation to minimize radiation-induced inflammatory changes in the bronchus as the right mainstem bronchus has almost completely closed. HISTORY OF PRESENT ILLNESS: This is a 77-year-old female with past medical history significant for chronic obstructive lung disease, high cholesterol, anxiety, coronary artery disease, lung cancer, who is now admitted with shortness of breath, was found to have pneumonia and transferred to the transitional care for the last 2 days of acute care as the patient's creatinine increased, and the patient was on Bactrim. REVIEW OF SYSTEMS: Twelve-point review of systems is performed an is negative except for what is mentioned in the HPI. PAST MEDICAL HISTORY: Significant for stage IV non-small cell lung cancer; chronic obstructive lung disease, status post proton beam therapy to the left upper lobe and to the right lung, developed radiation pneumonitis, has been on high-dose steroids as an outpatient, and more recently admitted to the hospital with progressive shortness of breath, lower extremity edema, and inability to breathe. The patient has history for demand ischemia with elevation of her troponins in the past, but does not have any quantified history of significant coronary artery disease. On the acute side, the patient was treated with acute steroids, IV Solu-Medrol. Along with that, the patient was treated empirically with Bactrim and doxycycline, which have been recently stopped with worsening kidney dysfunction. Significant for mastectomy 20 years ago, cardiac cath, and coronary artery bypass graft done by Dr. Ibarra in 2012. ALLERGIES: THE PATIENT IS ALLERGIC TO MONOSODIUM GLUTAMATE. MEDICATIONS: Reviewed, which are on the chart. PHYSICAL EXAMINATION: VITAL SIGNS: Stable. Blood pressure is 130/70, T-max is 98.4, respirations 18. HEENT: Reveals steroid facies. No oropharyngeal lesions are noted. NECK: Supple. LUNGS: Reveal scattered wheeze, but relatively clear compared to before. Breath sounds are heard equally well on both lung garcia. HEART: Reveals S1 and S2 to be normal. No gallop or murmur is heard. ABDOMEN: Soft, nontender. Bowel sounds are present. EXTREMITIES: Reveal no significant edema. NEUROLOGIC: Reveals higher functions to be normal. No focal deficits are noted. MUSCULOSKELETAL: The patient has severe kyphoscoliosis. LABORATORY DATA: Reveals a white count of 19,000, hemoglobin 13, platelet count of 455. Creatinine is up to 1.2. GFR is 44. Procalcitonin is 0.12. Urinalysis noted. Serology reveals 1,3-beta-D glucan is negative. Aspergillus is not detected. Antigen and TCR are not detected. Urine antigen is negative. Influenzae are negative. Cryptococcus was negative. ASSESSMENT, NOTES, AND PLAN: The patient is admitted for deconditioning with a background history of having stage IV non-small cell lung cancer with acquired radiation pneumonitis and sepsis with healthcare-associated pneumonia, now off Bactrim. The patient received 6 days of Bactrim. The patient will continue Mepron for Pneumocystis carinii pneumonia as discussed with Dr. Larkin and Dr. Madera. The patient is clinically improving, and we will continue the doxycycline as well. We will follow the patient very carefully over the next several days while she is in the unit for rehab and deconditioning, so that she can walk better, especially for proximal muscle myopathy related to the steroids. Steroids are being gradually tapered over the next several days. Vicki Restrepo MD
[2018-03-14] MEDS: Albuterol-Ipratrop 3 mg / 0.5 (3 ml) UD IH SCH ×4 (01:45→20:42)
[2018-03-14] MEDS: Pantoprazole 40 mg EC Tab PO SCH (05:40)
[2018-03-14] MEDS: Arformoterol 15 mcg/2 ml Inh Sol IH SCH ×2 (07:40→20:42)
[2018-03-14] MEDS: Budesonide 0.5 mg/2 ml Inhal Susp UD IH SCH ×2 (07:40→20:42)
--- NOTE | 2018-03-14 08:42 | PN ---
DATE: 03/14/2018 SUBJECTIVE: The patient appears very comfortable this morning. She is not short of breath at rest. PHYSICAL EXAMINATION: VITAL SIGNS: Temperature is 98, pulse 88, respirations 18, blood pressure 134/83. Oxygen saturation on nasal cannula is 98%. HEENT: Normocephalic, atraumatic. No JVD. CARDIOVASCULAR: Positive S1, S2. No S3 gallop. LUNGS: Clear bilaterally. EXTREMITIES: Mild edema. No cyanosis, no clubbing. Calves are nontender to palpation. GASTROINTESTINAL: Abdomen is soft, nontender and nondistended. Bowel sounds are positive. SKIN: No acute rash. NEUROLOGIC: Exam limited at the present time. IMPRESSION: 1. Chronic obstructive pulmonary disease. 2. Acute bronchitis. 3. Advanced lung cancer. 4. Possible radiation pneumonitis. 5. Paroxysmal atrial fibrillation. PLAN: The patient appears very comfortable this morning. She is not short of breath at rest. She does state to feeling much better overall. I did discuss the case with the night nurse at length. The night nurse stated that the patient did have a good night, but lost her intravenous access. On physical exam, the patient's lungs remain clear. In addition, the oxygen saturation on nasal cannula is now 98%. I will continue the current nebulizer treatments and change to oral steroids this morning. The patient remains on antibiotic therapy - as per Infectious Disease. There are no temperatures noted. Input by Oncology is also noted. Clinical status of the patient is significantly improved - compared to the initial presentation. However, given the above, the future status/prognosis for this patient does remain guarded. I will discuss the above with the attending physician. Nitesh Larkin MD LILLIAM
[2018-03-14] MEDS: Calcium-Vit D 250 mg-125 Units Tab UD PO SCH (10:53)
[2018-03-14] MEDS: diltiaZEM 240 mg/24 Hours CD Cap PO SCH (10:53)
[2018-03-14] MEDS: Atovaquone 750 mg/5 ml Susp UD PO SCH ×2 (10:56→17:17)
--- NOTE | 2018-03-14 17:06 | PN ---
DATE: 03/14/2018 SUBJECTIVE: The patient is in bed, in no acute distress, nontoxic. PHYSICAL EXAMINATION: VITAL SIGNS: On exam, temperature is 98, blood pressure is 140/90, respiratory rate of 16. HEENT: Examination of HEENT is unremarkable. NECK: Supple. LUNGS: Have decreased breath sounds. HEART: Normal S1, S2. ABDOMEN: Soft, nontender. LABORATORY DATA: Laboratory examination reveals the patient's chemistries from yesterday is noted, creatinine. Review of orders reveals the patient to be on p.o. doxycycline and p.o. Mepron, and also prednisone. ASSESSMENT/PLAN: This is a 77-year-old female with sepsis, healthcare-associated pneumonia, had received 6 days' of Bactrim, mild increase in renal function and the Bactrim was discontinued. Will continue the Mepron and doxycycline, today is day #8, also on Solu-Medrol. Dr. Larkin's note from progress note from this morning is reviewed... We will follow with you. Marino Madera MD
--- NOTE | 2018-03-14 20:21 | CARD ---
APPROVED REPORT Date of service: 03/14/2018 EKG Measurement Heart [id number] <Conclusion> Sinus tachycardia Left ventricular hypertrophy with repolarization abnormality Possible Chacorta-lateral infarct, age undetermined Abnormal ECG
[2018-03-15] MEDS: Albuterol-Ipratrop 3 mg / 0.5 (3 ml) UD IH SCH ×4 (02:00→21:15)
--- NOTE | 2018-03-15 02:19 | PN ---
DATE: 03/14/2018 This is [facility]'s hospital visit on TCU. For Dr. Restrepo. SUBJECTIVE: The patient is a 77-year-old female, seen sitting up in bed, having nebulizer treatment, now participating with deconditioning. She is known to suffer from non-small cell CA of the lung with COPD. PHYSICAL EXAMINATION: VITAL SIGNS: Temperature 98.2, pulse 93, respirations 20, blood pressure 120/75, pulse ox 96%. HEENT: Unremarkable. NECK: Supple. LUNGS: Occasional rhonchi. HEART: Regular rate. ABDOMEN: Soft and nontender. EXTREMITIES: Faint +1 edema. NEUROLOGIC: Awake and alert. SKIN: Warm and dry. LABORATORY DATA: The patient's labs were done. Yesterday, white blood cell count of 19.5, hemoglobin 13.7, hematocrit of 42.9, platelet count of 455,000 with a metabolic panel showing a potassium of 5.1, BUN of 30, creatinine of 1.2, otherwise normal metabolic panel. The patient had EKG today after she had a run of atrial fibrillation with EKG showing sinus tachycardia, LVH with repolarization abnormality, possible anterolateral infarct age undetermined and abnormal EKG. The patient was then seen by Dr. Infante who recommended to continue present medical regimen as the patient is on Cardizem for her dysrhythmia. ASSESSMENT: For this patient is that of non-small cell carcinoma of the lung, chronic obstructive pulmonary disease, atherosclerotic cardiovascular disease, history of atrial fibrillation, deconditioning. PLAN: For this patient is to continue present medical regimen. We will monitor clinically as indicated. This is a complex patient with a comprehensive medically necessary and appropriate visit carried out in excess of 20 minutes with the patient's questions answered to her satisfaction. Bill Valencia MD
[2018-03-15] MEDS: Pantoprazole 40 mg EC Tab PO SCH (05:29)
[2018-03-15] MEDS: Budesonide 0.5 mg/2 ml Inhal Susp UD IH SCH ×2 (07:14→21:15)
[2018-03-15] MEDS: Arformoterol 15 mcg/2 ml Inh Sol IH SCH ×2 (07:14→21:15)
[2018-03-15 07:34] LABS: ALB/GLOB RATIO 1.2 (1.1-1.8); ALBUMIN 3.4 g/dL (3.0-4.8); ALT/SGPT 47 U/L (7-56); AST/SGOT 24 U/L (14-36); BLOOD UREA NITROGEN 36 mg/dL (7-21); CALCIUM 9.5 mg/dL (8.4-10.5); GFR NON-AFRICAN AMERICAN 54
--- NOTE | 2018-03-15 10:02 | PN ---
DATE: 03/15/2018 SUBJECTIVE: The patient appears comfortable this morning. She is not short of breath at rest. PHYSICAL EXAMINATION: VITAL SIGNS (Last noted in the computer): Temperature 98.2, pulse 93, respirations 18/20, blood pressure 128/75. Oxygen saturation on nasal cannula is 96-97%. HEENT: Normocephalic, atraumatic. NECK: No JVD. CARDIOVASCULAR: Positive S1, S2. No S3 gallop. LUNGS: Very minimal rhonchi this morning. No wheezing. EXTREMITIES: Mild edema. No cyanosis. No clubbing. Calves are nontender to palpation. GI: Abdomen is soft, nontender, nondistended. Bowel sounds are positive. SKIN: No acute rash. NEUROLOGIC: Exam limited at the present time. IMPRESSION: 1. Chronic obstructive pulmonary disease. 2. Acute bronchitis. 3. Advanced lung cancer. 4. Possible radiation pneumonitis. 5. Paroxysmal atrial fibrillation. PLAN: The patient appears comfortable this morning. She is not short of breath at rest. She does state to feeling better overall. On physical exam, there is no significant bronchospasm noted. In addition, there is no significant alveolar-arterial gradient. I will continue with the current nebulizer treatments and oral steroids for now. The patient remains on antibiotic therapy - as per Infectious Disease. Input by Dr. Madera is noted. There are no temperatures noted. Input by Oncology is also noted. Clinical status of the patient is significantly improved - compared to the initial presentation. However, given the above, the future status/prognosis for this patient remains guarded. I did go over the case at length with the son and granddaughter yesterday. I will also discuss the above with the attending physician later today. Nitesh Larkin MD MTDD
[2018-03-15] MEDS: diltiaZEM 240 mg/24 Hours CD Cap PO SCH (10:09)
[2018-03-15] MEDS: Atovaquone 750 mg/5 ml Susp UD PO SCH ×2 (10:10→17:23)
[2018-03-15] MEDS: Calcium-Vit D 250 mg-125 Units Tab UD PO SCH (10:10)
--- NOTE | 2018-03-15 15:42 | CP.PCM.PN ---
<Tessa Drummond - Last Filed: 03/15/18 15:40> Subjective - Date & Time of Evaluation Date of Evaluation: 03/15/18 Time of Evaluation: 15:41 - Subjective Subjective: ID progress note PGY-[address] Marti Pt had no acute complaint. participate in PT Objective - Vital Signs/Intake and Output Vital Signs (last 24 hours): Temp Pulse Resp BP Pulse Ox 98.2 F 96 H 20 128/75 96 03/14/18 16:00 03/15/18 10:09 03/14/18 16:00 03/14/18 16:00 03/14/18 16:00 Intake and Output: 03/15/18 03/15/18 06:59 18:59 Intake Total 360 Balance 360 - Medications Medications: Current Medications Albuterol/Ipratropium (Duoneb 3 Mg/0.5 Mg (3 Ml) Ud) 3 ml IH Q2H PRN; Protocol PRN Reason: Shortness of Breath Albuterol/Ipratropium (Duoneb 3 Mg/0.5 Mg (3 Ml) Ud) 3 ml IH [id number] [facility]; Protocol Last Admin: 03/15/18 13:23 Dose: 3 ml Arformoterol Tartrate (Brovana) 15 mcg IH [id number] [facility] Last Admin: 03/15/18 07:14 Dose: 15 mcg Aspirin (Aspirin Chewable) 81 mg PO 0800 [facility]; Protocol Last Admin: 03/15/18 08:34 Dose: 81 mg Atovaquone (Mepron) 750 mg PO BID [facility]; Protocol Last Admin: 03/15/18 10:10 Dose: 750 mg Budesonide (Pulmicort Respules) 0.5 mg IH [id number] [facility]; Protocol Last Admin: 03/15/18 07:14 Dose: 0.5 mg Calcium/Vitamin D (Oscal-D 250 Mg-125 Units Tab) 1 tab PO DAILY [facility]; Protocol Last Admin: 03/15/18 10:10 Dose: 1 tab Clotrimazole (Mycelex Mi) 10 mg MT QID [facility]; Protocol Last Admin: 03/15/18 14:31 Dose: 10 mg Diltiazem HCl (Cardizem Cd) 240 mg PO DAILY [facility] Last Admin: 03/15/18 10:09 Dose: 240 mg Docusate Sodium (Colace) 200 mg PO TID [facility]; Protocol Last Admin: 03/15/18 14:31 Dose: 200 mg Doxycycline Hyclate (Doryx) 100 mg PO Q12 [facility]; Protocol Last Admin: 03/15/18 10:09 Dose: 100 mg Lorazepam (Ativan) 1 mg PO TID PRN; Protocol PRN Reason: Anxiety Last Admin: 03/15/18 08:37 Dose: 1 mg Pantoprazole Sodium (Protonix Ec Tab) 40 mg PO 0600 [facility]; Protocol Last Admin: 03/15/18 05:29 Dose: 40 mg Prednisone (Prednisone Tab) 30 mg PO DAILY [facility] Last Admin: 03/15/18 10:10 Dose: 30 mg - Labs Labs: 03/13/18 06:00 03/15/18 06:30 - Constitutional Appears: No Acute Distress - Head Exam Head Exam: ATRAUMATIC, NORMAL INSPECTION, NORMOCEPHALIC - Eye Exam Eye Exam: EOMI, Normal appearance, PERRL. absent: Scleral icterus Pupil Exam: NORMAL ACCOMODATION - ENT Exam ENT Exam: Mucous Membranes Moist - Neck Exam Additional comments: supple - Respiratory Exam Respiratory Exam: Clear to Ausculation Bilateral, Rhonchi - Cardiovascular Exam Cardiovascular Exam: REGULAR RHYTHM, +S1, +S2 - GI/Abdominal Exam GI & Abdominal Exam: Soft, Normal Bowel Sounds. absent: Guarding, Rigid, Tender ness - Extremities Exam Extremities Exam: Pedal Edema. absent: Calf Tenderness - Back Exam Back Exam: absent: CVA tenderness (L), CVA tenderness (R) - Neurological Exam Neurological Exam: Alert, Awake, Oriented x3 - Psychiatric Exam Psychiatric exam: Normal Affect, Normal Mood - Skin Skin Exam: Dry, Warm Assessment and Plan - Assessment and Plan (Free Text) Plan: A: Severe Sepsis due to HCAP, atypical lung CA CAD S/P CABG S/P mastectomy atrial fibrillation history of bronchitis COPD anxiety P: After 6 days of Bactrim, switch to mepron and PO Doxycycline day#9 on prednisone 30 PCT is low will continue to monitor clinically s/r/d/w Dr Marti <Mario Marti - Last Filed: 03/15/18 15:54> Objective - Vital Signs/Intake and Output Vital Signs (last 24 hours): Temp Pulse Resp BP Pulse Ox 98.2 F 96 H 20 128/75 96 03/14/18 16:00 03/15/18 10:09 03/14/18 16:00 03/14/18 16:00 03/14/18 16:00 Intake and Output: 03/15/18 03/15/18 06:59 18:59 Intake Total 360 Balance 360 - Medications Medications: Current Medications Albuterol/Ipratropium (Duoneb 3 Mg/0.5 Mg (3 Ml) Ud) 3 ml IH Q2H PRN; Protocol PRN Reason: Shortness of Breath Albuterol/Ipratropium (Duoneb 3 Mg/0.5 Mg (3 Ml) Ud) 3 ml IH [id number] [facility]; Protocol Last Admin: 03/15/18 13:23 Dose: 3 ml Arformoterol Tartrate (Brovana) 15 mcg IH [id number] [facility] Last Admin: 03/15/18 07:14 Dose: 15 mcg Aspirin (Aspirin Chewable) 81 mg PO 0800 [facility]; Protocol Last Admin: 03/15/18 08:34 Dose: 81 mg Atovaquone (Mepron) 750 mg PO BID [facility]; Protocol Last Admin: 03/15/18 10:10 Dose: 750 mg Budesonide (Pulmicort Respules) 0.5 mg IH [id number] [facility]; Protocol Last Admin: 03/15/18 07:14 Dose: 0.5 mg Calcium/Vitamin D (Oscal-D 250 Mg-125 Units Tab) 1 tab PO DAILY [facility]; Protocol Last Admin: 03/15/18 10:10 Dose: 1 tab Clotrimazole (Mycelex Mi) 10 mg MT QID [facility]; Protocol Last Admin: 03/15/18 14:31 Dose: 10 mg Diltiazem HCl (Cardizem Cd) 240 mg PO DAILY [facility] Last Admin: 03/15/18 10:09 Dose: 240 mg Docusate Sodium (Colace) 200 mg PO TID [facility]; Protocol Last Admin: 03/15/18 14:31 Dose: 200 mg Doxycycline Hyclate (Doryx) 100 mg PO Q12 [facility]; Protocol Last Admin: 03/15/18 10:09 Dose: 100 mg Lorazepam (Ativan) 1 mg PO TID PRN; Protocol PRN Reason: Anxiety Last Admin: 03/15/18 08:37 Dose: 1 mg Pantoprazole Sodium (Protonix Ec Tab) 40 mg PO 0600 [facility]; Protocol Last Admin: 03/15/18 05:29 Dose: 40 mg Prednisone (Prednisone Tab) 30 mg PO DAILY [facility] Last Admin: 03/15/18 10:10 Dose: 30 mg - Labs Labs: 03/13/18 06:00 03/15/18 06:30 Assessment and Plan - Assessment and Plan (Free Text) Plan: Infectious diseases Attending Physician Attestation Patient seen and examined, discussed with medical record assistant. I have reviewed the patient's history of present illness, past medical, social, personal and family histories, pertinent physical exam findings, course so far in this hospital admission, pertinent laboratory and imaging results. I agree with the above findings, assessment and plan. In addition, continue Mepron and Doxycycline for sepsis from atypical HCAP (day 9 of 10-14). Overall prognosis is poor.
--- NOTE | 2018-03-15 19:30 | PN ---
DATE: 03/15/2018 This is [facility] TCU. For Dr. Restrepo. SUBJECTIVE: The patient is a 77-year-old female, seen sitting up in a chair with her granddaughter at the bedside, participating with deconditioning, known to suffer from non-small cell CA of the lung with severe COPD. She is resting comfortably and in no acute distress. Participating with TCU protocols. PHYSICAL EXAMINATION VITAL SIGNS: Temperature 98.2, pulse 96, respirations 20, blood pressure 120/75, pulse ox 96%. HEENT: Unremarkable. NECK: Supple. HEART: Regular rate. LUNGS: Rare rhonchi. ABDOMEN: Soft, nontender, and obese. EXTREMITIES: No edema. SKIN: Warm and dry. NEUROLOGIC: Awake and alert. The patient did have an EKG done yesterday was read as sinus tachycardia and LVH, possible anterolateral infarct and abnormal EKG. This was done because she had a run of atrial fibrillation for which her service greeter, Dr. Infante recommended to continue present medical regimen. The patient is otherwise resting comfortably and in no acute distress. ASSESSMENT: The assessment for this patient is that of deconditioning, non-small cell carcinoma of the lung, chronic obstructive pulmonary disease, atherosclerotic cardiovascular disease, history of atrial fibrillation, history of severe sepsis, coronary artery bypass graft history and anxiety. PLAN: Plan for this patient is to continue present medical regimen with steroids and antibiotics with prognosis for this patient is guarded. We will monitor clinically with labs as indicated as per TCU protocols. This is a complex patient with a comprehensive medically necessary and appropriate visit carried out in excess of 20 minutes with the patient and her granddaughter's questions answered to their satisfaction. Bill Valencia MD
[2018-03-16] MEDS: Pantoprazole 40 mg EC Tab PO SCH ×2 (05:32→18:23)
[2018-03-16] MEDS: Arformoterol 15 mcg/2 ml Inh Sol IH SCH ×2 (07:18→20:02)
[2018-03-16] MEDS: Albuterol-Ipratrop 3 mg / 0.5 (3 ml) UD IH SCH ×3 (07:19→20:02)
[2018-03-16] MEDS: Budesonide 0.5 mg/2 ml Inhal Susp UD IH SCH ×2 (07:19→20:02)
[2018-03-16] MEDS: diltiaZEM 240 mg/24 Hours CD Cap PO SCH (09:31)
[2018-03-16] MEDS: Atovaquone 750 mg/5 ml Susp UD PO SCH ×2 (09:32→18:22)
[2018-03-16] MEDS: Calcium-Vit D 250 mg-125 Units Tab UD PO SCH (09:33)
--- NOTE | 2018-03-16 22:08 | PN ---
DATE: 03/16/2018 SUBJECTIVE: The patient is in bed, in no acute distress, nontoxic. PHYSICAL EXAMINATION: VITAL SIGNS: Temperature is 98, blood pressure is 120/70, respiratory rate of 18, heart rate of 95. HEENT: Unremarkable. NECK: Supple. LUNGS: Have decreased breath sounds. HEART: Normal S1 and S2. ABDOMEN: Soft. LABORATORY EXAMINATION: Reviewed. Review of orders reveals the patient to be on Mepron. ASSESSMENT AND PLAN: A 77-year-old with severe sepsis due to health care associated pneumonia, atypical and invasive lung cancer, coronary artery disease, history of coronary artery bypass graft, history of breast cancer, mastectomy, atrial fibrillation, chronic obstructive lung disease, anxiety. Currently, day #10 of Mepron, doxycycline has been discontinued. We will continue the Mepron for now. Marino Madera MD
[2018-03-17] MEDS: Albuterol-Ipratrop 3 mg / 0.5 (3 ml) UD IH SCH ×4 (01:42→20:58)
[2018-03-17] MEDS: Pantoprazole 40 mg EC Tab PO SCH ×2 (05:35→17:43)
[2018-03-17] MEDS: Arformoterol 15 mcg/2 ml Inh Sol IH SCH ×2 (07:07→20:58)
[2018-03-17] MEDS: Budesonide 0.5 mg/2 ml Inhal Susp UD IH SCH ×2 (07:07→21:00)
[2018-03-17] MEDS: diltiaZEM 240 mg/24 Hours CD Cap PO SCH (10:07)
[2018-03-17] MEDS: Atovaquone 750 mg/5 ml Susp UD PO SCH (10:08)
[2018-03-17] MEDS: Calcium-Vit D 250 mg-125 Units Tab UD PO SCH (10:08)
--- NOTE | 2018-03-17 11:42 | PN ---
DATE: 03/17/2018 SUBJECTIVE: The patient is in bed in no acute distress. PHYSICAL EXAMINATION: VITAL SIGNS: Temperature of 98, blood pressure is 120/70, respiratory rate of 18 and heart rate of 95. HEENT: Unremarkable. NECK: Supple. LUNGS: Have decreased breath sounds. HEART: Normal S1, S2. ABDOMEN: Soft and nontender. LABORATORY EXAMINATION: Reveals a white count of 19,500, hemoglobin of 13 and 92% granulocytosis. BUN of 30 and creatinine of 1.2. Chemistries, microbiology is noted. ASSESSMENT AND PLAN: A 77-year-old female who was seen earlier this morning. She is was admitted with severe sepsis, healthcare-associated pneumonia in face of lung cancer, coronary artery disease, history of coronary bypass graft. The patient had lung cancer, the patient has breast cancer and mastectomy and atrial fibrillation, chronic obstructive lung disease and anxiety, had been on high-dose steroids and now on day #11 of Mepron. The patient has developed diarrhea. We will reduce the Mepron to prophylactic doses instead of treatment dosing and once daily. We will check on the stool for Clostridium difficile and discussion with the patient's granddaughter this morning. We will lower the Mepron dose to once daily and check the stool for Clostridium difficile and follow clinically the improvement of the diarrhea. Marino Madera MD
--- NOTE | 2018-03-17 21:01 | CP.PCM.PN ---
Subjective - Date & Time of Evaluation Date of Evaluation: 03/16/18 Time of Evaluation: 20:00 - Subjective Subjective: Patient noted to have several small volume liquid Bm's today. otherwise no accute complaints ROS: 12 ROS otherwise negative Pain: denies Objective - Vital Signs/Intake and Output Vital Signs (last 24 hours): Temp Pulse Resp BP Pulse Ox 97.1 F L 94 H 16 126/62 99 03/17/18 16:00 03/17/18 16:00 03/17/18 16:00 03/17/18 16:00 03/17/18 16:00 Intake and Output: 03/17/18 03/18/18 18:59 06:59 Intake Total 420 Balance 420 - Medications Medications: Current Medications Albuterol/Ipratropium (Duoneb 3 Mg/0.5 Mg (3 Ml) Ud) 3 ml IH Q2H PRN; Protocol PRN Reason: Shortness of Breath Albuterol/Ipratropium (Duoneb 3 Mg/0.5 Mg (3 Ml) Ud) 3 ml IH [id number] [facility]; Protocol Last Admin: 03/17/18 20:58 Dose: 3 ml Arformoterol Tartrate (Brovana) 15 mcg IH [id number] [facility] Last Admin: 03/17/18 20:58 Dose: 15 mcg Aspirin (Aspirin Chewable) 81 mg PO 0800 [facility]; Protocol Last Admin: 03/17/18 08:17 Dose: 81 mg Atovaquone (Mepron) 750 mg PO DAILY [facility]; Protocol Last Admin: 03/17/18 10:08 Dose: 750 mg Budesonide (Pulmicort Respules) 0.5 mg IH [id number] [facility]; Protocol Last Admin: 03/17/18 07:07 Dose: 0.5 mg Calcium/Vitamin D (Oscal-D 250 Mg-125 Units Tab) 1 tab PO DAILY [facility]; Protocol Last Admin: 03/17/18 10:08 Dose: 1 tab Clotrimazole (Mycelex Mi) 10 mg MT QID [facility]; Protocol Last Admin: 03/17/18 17:43 Dose: 10 mg Diltiazem HCl (Cardizem Cd) 240 mg PO DAILY [facility] Last Admin: 03/17/18 10:07 Dose: 240 mg Docusate Sodium (Colace) 200 mg PO TID PRN; Protocol PRN Reason: Constipation Lorazepam (Ativan) 1 mg PO TID PRN; Protocol PRN Reason: Anxiety Last Admin: 03/17/18 10:17 Dose: 1 mg Pantoprazole Sodium (Protonix Ec Tab) 40 mg PO 0600,1800 [facility]; Protocol Last Admin: 03/17/18 17:43 Dose: 40 mg Prednisone (Prednisone Tab) 30 mg PO DAILY [facility] Last Admin: 03/17/18 10:08 Dose: 30 mg - Labs Labs: 03/13/18 06:00 03/15/18 06:30 - Constitutional Appears: Non-toxic - Respiratory Exam Respiratory Exam: Clear to Ausculation Bilateral, NORMAL BREATHING PATTERN - Cardiovascular Exam Cardiovascular Exam: REGULAR RHYTHM, +S1, +S2. absent: Murmur - GI/Abdominal Exam GI & Abdominal Exam: Soft, Normal Bowel Sounds. absent: Tenderness - Extremities Exam Extremities Exam: Pedal Edema Assessment and Plan - Assessment and Plan (Free Text) Assessment: Ms Mcdonald sobia 77 y/o woman with a pmhx significant for breast cancer s/p mastectomy; NSCLC, COPD, ASCVD who is admitted with severe sepsis in setting of HCAP and COPD exacerbation -stool sample sent for Cdif (noted to have some diarrhea) -continue steroid taper per pulmonary -optho consultation giving blurry vision; has hx of catracts -continue abx per ID Mode thompson MD Oncology
--- NOTE | 2018-03-17 21:05 | CP.PCM.PN ---
Subjective - Date & Time of Evaluation Date of Evaluation: 03/17/18 Time of Evaluation: 19:00 - Subjective Subjective: No acute issues. Diarrhea resolved. ID reduced mepron dose to qd b/c of possibility that diarrhea could be side effect. Cdif negative ROS: 12 ROS otherwise negative Pain: denies Objective - Vital Signs/Intake and Output Vital Signs (last 24 hours): Temp Pulse Resp BP Pulse Ox 97.1 F L 94 H 16 126/62 99 03/17/18 16:00 03/17/18 16:00 03/17/18 16:00 03/17/18 16:00 03/17/18 16:00 Intake and Output: 03/17/18 03/18/18 18:59 06:59 Intake Total 420 Balance 420 - Medications Medications: Current Medications Albuterol/Ipratropium (Duoneb 3 Mg/0.5 Mg (3 Ml) Ud) 3 ml IH Q2H PRN; Protocol PRN Reason: Shortness of Breath Albuterol/Ipratropium (Duoneb 3 Mg/0.5 Mg (3 Ml) Ud) 3 ml IH [id number] [facility]; Protocol Last Admin: 03/17/18 20:58 Dose: 3 ml Arformoterol Tartrate (Brovana) 15 mcg IH [id number] [facility] Last Admin: 03/17/18 20:58 Dose: 15 mcg Aspirin (Aspirin Chewable) 81 mg PO 0800 [facility]; Protocol Last Admin: 03/17/18 08:17 Dose: 81 mg Atovaquone (Mepron) 750 mg PO DAILY [facility]; Protocol Last Admin: 03/17/18 10:08 Dose: 750 mg Budesonide (Pulmicort Respules) 0.5 mg IH [id number] [facility]; Protocol Last Admin: 03/17/18 21:00 Dose: 0.5 mg Calcium/Vitamin D (Oscal-D 250 Mg-125 Units Tab) 1 tab PO DAILY [facility]; Protocol Last Admin: 03/17/18 10:08 Dose: 1 tab Clotrimazole (Mycelex Mi) 10 mg MT QID [facility]; Protocol Last Admin: 03/17/18 17:43 Dose: 10 mg Diltiazem HCl (Cardizem Cd) 240 mg PO DAILY [facility] Last Admin: 03/17/18 10:07 Dose: 240 mg Docusate Sodium (Colace) 200 mg PO TID PRN; Protocol PRN Reason: Constipation Lorazepam (Ativan) 1 mg PO TID PRN; Protocol PRN Reason: Anxiety Last Admin: 03/17/18 10:17 Dose: 1 mg Pantoprazole Sodium (Protonix Ec Tab) 40 mg PO 0600,1800 [facility]; Protocol Last Admin: 03/17/18 17:43 Dose: 40 mg Prednisone (Prednisone Tab) 30 mg PO DAILY [facility] Last Admin: 03/17/18 10:08 Dose: 30 mg - Labs Labs: 03/13/18 06:00 03/15/18 06:30 - Constitutional Appears: Non-toxic - Respiratory Exam Respiratory Exam: Clear to Ausculation Bilateral, NORMAL BREATHING PATTERN - Cardiovascular Exam Cardiovascular Exam: REGULAR RHYTHM, +S1, +S2. absent: Murmur - GI/Abdominal Exam GI & Abdominal Exam: Soft, Normal Bowel Sounds. absent: Tenderness - Extremities Exam Extremities Exam: Full ROM, Normal Capillary Refill, Normal Inspection. absent: Joint Swelling, Pedal Edema Assessment and Plan - Assessment and Plan (Free Text) Assessment: Ms Mcdonald sobia 77 y/o woman with a pmhx significant for breast cancer s/p mastectomy; NSCLC, COPD, ASCVD who is admitted with severe sepsis in setting of HCAP and COPD exacerbation -continue steroid taper per pulmonary -optho consultation giving blurry vision; has hx of catracts -continue abx per ID Mode thompson MD Oncology
[2018-03-18] MEDS: Albuterol-Ipratrop 3 mg / 0.5 (3 ml) UD IH SCH ×4 (01:28→20:38)
[2018-03-18] MEDS: Pantoprazole 40 mg EC Tab PO SCH ×2 (05:36→17:15)
[2018-03-18] MEDS: Budesonide 0.5 mg/2 ml Inhal Susp UD IH SCH ×2 (06:59→20:38)
[2018-03-18] MEDS: Arformoterol 15 mcg/2 ml Inh Sol IH SCH ×2 (06:59→20:38)
--- NOTE | 2018-03-18 08:37 | PN ---
DATE: 03/16/2018 SUBJECTIVE: The patient states that she is 70% better than when last seen in my office. She states that there is no longer any wheezing, but she still has shortness of breath. She still complains of generalized weakness. She is ambulating and having physical therapy. PHYSICAL EXAMINATION: GENERAL: The patient is comfortable at rest. VITAL SIGNS: Stable. Temperature 98.6, pulse 90, respiratory rate 18, blood pressure 126/76, O2 saturation is 96% on supplemental oxygen. HEENT: Normocephalic, atraumatic. NECK: Supple. No jugular venous distension. No bruit. No mass. CARDIOVASCULAR: Regular rhythm. S1, S2 without murmur or gallop or rub. CHEST: Global decrease in breath sounds, but no wheezing appreciated. ABDOMEN: Soft. Bowel sounds normoactive without mass, guarding, rebound or organomegaly. EXTREMITIES: Reveal trace edema. No clubbing or cyanosis. No Homans sign. SKIN: No rash or excoriation. NEUROLOGIC: Awake, alert, oriented. No abnormalities. CLINICAL IMPRESSION: 1. Chronic obstructive pulmonary disease with asthma and resolving acute bronchospasm. 2. Advanced lung cancer. 3. Possible radiation pneumonitis. 4. History of paroxysmal atrial fibrillation. PLAN: Continue vigorous antibiotics and bronchodilators with corticosteroids. We will need to follow closely during the hospitalization period as well as the postoperative period. We will discuss further treatment with the patient's oncologist, Dr. Restrepo, and radiation oncologist. Although the patient is somewhat more stable now than when seen in the office, but long-term prognosis still remains guarded. Etiology of the radiographic abnormalities is unclear, radiation fibrosis? radiation pneumonitis? residual tumor? We will discuss with all involved during an outpatient session. Eugene Edge MD
[2018-03-18] MEDS: diltiaZEM 240 mg/24 Hours CD Cap PO SCH (10:31)
[2018-03-18] MEDS: Atovaquone 750 mg/5 ml Susp UD PO SCH (10:32)
[2018-03-18] MEDS: Calcium-Vit D 250 mg-125 Units Tab UD PO SCH (10:33)
--- NOTE | 2018-03-18 11:11 | PN ---
DATE: 03/18/2018 SUBJECTIVE: The patient appears very comfortable this morning. She is not short of breath at rest. PHYSICAL EXAMINATION: VITAL SIGNS (LAST NOTED IN THE COMPUTER): Temperature is 97.1, pulse 94, respirations 16, blood pressure 126/62. Oxygen saturation on nasal cannula is 99%. HEENT: Normocephalic, atraumatic. No JVD. CARDIOVASCULAR: Positive S1, S2. No S3 gallop. LUNGS: Clear bilaterally. EXTREMITIES: Mild edema. No cyanosis, no clubbing. Calves are nontender to palpation. GASTROINTESTINAL: Abdomen is soft, nontender and nondistended. Bowel sounds are positive. SKIN: No acute rash. NEUROLOGIC: Exam limited at the present time. IMPRESSION: 1. Chronic obstructive pulmonary disease. 2. Acute bronchitis. 3. Advanced lung cancer. 4. Possible radiation pneumonitis. 5. Paroxysmal atrial fibrillation. PLAN: The patient appears very comfortable this morning. She is not short of breath at rest. She does state to feeling much better overall. On physical exam, her lungs are clear this morning. In addition, the oxygen saturation on nasal cannula is now 99%. I will continue the current nebulizer treatments and current oral steroids for now. The patient remains on antibiotics - as per Infectious Disease. Input by Dr. Madera is noted. There are no temperatures noted. Clinical status of the patient is significantly improved - compared to the initial presentation. However, given the above, the future status/prognosis for this patient does remain guarded. I will discuss the above with the attending physician later this morning. Nitesh Larkin MD MTDFavio
[2018-03-18 17:08] VITALS: RESP 20
--- NOTE | 2018-03-18 17:27 | CP.PCM.PN ---
Subjective - Date & Time of Evaluation Date of Evaluation: 03/18/18 Time of Evaluation: 10:10 - Subjective Subjective: No fevers, not in distress. Cough and breathing are better and patient is feeling better. Objective - Vital Signs/Intake and Output Vital Signs (last 24 hours): Temp Pulse Resp BP Pulse Ox 97.1 F L 94 H 16 126/62 99 03/17/18 16:00 03/17/18 16:00 03/17/18 16:00 03/17/18 16:00 03/17/18 16:00 - Medications Medications: Current Medications Albuterol/Ipratropium (Duoneb 3 Mg/0.5 Mg (3 Ml) Ud) 3 ml IH Q2H PRN; Protocol PRN Reason: Shortness of Breath Albuterol/Ipratropium (Duoneb 3 Mg/0.5 Mg (3 Ml) Ud) 3 ml IH [id number] [facility]; Protocol Last Admin: 03/18/18 06:59 Dose: 3 ml Arformoterol Tartrate (Brovana) 15 mcg IH [id number] [facility] Last Admin: 03/18/18 06:59 Dose: 15 mcg Aspirin (Aspirin Chewable) 81 mg PO 0800 [facility]; Protocol Last Admin: 03/17/18 08:17 Dose: 81 mg Atovaquone (Mepron) 750 mg PO DAILY [facility]; Protocol Last Admin: 03/17/18 10:08 Dose: 750 mg Budesonide (Pulmicort Respules) 0.5 mg IH [id number] [facility]; Protocol Last Admin: 03/18/18 06:59 Dose: 0.5 mg Calcium/Vitamin D (Oscal-D 250 Mg-125 Units Tab) 1 tab PO DAILY [facility]; Protocol Last Admin: 03/17/18 10:08 Dose: 1 tab Clotrimazole (Mycelex Mi) 10 mg MT QID [facility]; Protocol Last Admin: 03/17/18 21:19 Dose: Not Given Diltiazem HCl (Cardizem Cd) 240 mg PO DAILY [facility] Last Admin: 03/17/18 10:07 Dose: 240 mg Docusate Sodium (Colace) 200 mg PO TID PRN; Protocol PRN Reason: Constipation Lorazepam (Ativan) 1 mg PO TID PRN; Protocol PRN Reason: Anxiety Last Admin: 03/17/18 21:20 Dose: 1 mg Pantoprazole Sodium (Protonix Ec Tab) 40 mg PO 0600,1800 [facility]; Protocol Last Admin: 03/18/18 05:36 Dose: 40 mg Prednisone (Prednisone Tab) 30 mg PO DAILY [facility] Last Admin: 03/17/18 10:08 Dose: 30 mg - Labs Labs: 03/13/18 06:00 03/15/18 06:30 - Constitutional Appears: No Acute Distress, Chronically Ill - Head Exam Head Exam: NORMAL INSPECTION - ENT Exam ENT Exam: Mucous Membranes Moist - Respiratory Exam Respiratory Exam: Decreased Breath Sounds - Cardiovascular Exam Cardiovascular Exam: +S1, +S2 - GI/Abdominal Exam GI & Abdominal Exam: Soft. absent: Tenderness Assessment and Plan - Assessment and Plan (Free Text) Plan: Assessment Diarrhea with no evidence of C. diff. (Stool antigen and toxin are negative) S/P sepsis from atypical HCAP chronic steroid use lung cancer CAD S/P CABG S/P mastectomy COPD anxiety chronic atrial fibrillation Plan continue prophylactic dose of Mepron and monitor clinically
[2018-03-19] MEDS: Albuterol-Ipratrop 3 mg / 0.5 (3 ml) UD IH SCH ×4 (01:34→20:47)
[2018-03-19] MEDS: Pantoprazole 40 mg EC Tab PO SCH ×2 (05:42→17:20)
[2018-03-19] MEDS: Arformoterol 15 mcg/2 ml Inh Sol IH SCH ×2 (07:58→20:47)
[2018-03-19] MEDS: Budesonide 0.5 mg/2 ml Inhal Susp UD IH SCH ×2 (07:58→20:48)
[2018-03-19] MEDS: diltiaZEM 240 mg/24 Hours CD Cap PO SCH (10:04)
[2018-03-19] MEDS: Atovaquone 750 mg/5 ml Susp UD PO SCH (10:05)
[2018-03-19] MEDS: Calcium-Vit D 250 mg-125 Units Tab UD PO SCH (10:05)
--- NOTE | 2018-03-19 10:08 | PN ---
DATE: 03/19/2018 PULMONARY NOTE SUBJECTIVE: The patient appears very comfortable this morning. She is not short of breath at rest. OBJECTIVE: VITAL SIGNS: Last temperature recorded is 97.5, pulse this morning is 88, respiratory rate 18, blood pressure 128/70. Oxygen saturation on nasal cannula is 96%. HEENT: Normocephalic, atraumatic. NECK: No JVD. CARDIOVASCULAR: Positive S1, S2. No S3 gallop. LUNGS: Clear bilaterally. EXTREMITIES: Mild edema. No cyanosis, no clubbing. Calves are non-tender to palpation. GASTROINTESTINAL: Abdomen is soft, nontender and nondistended. Bowel sounds are positive. SKIN: No acute rash. NEUROLOGIC: Limited at the present time. IMPRESSION: 1. Chronic obstructive pulmonary disease. 2. Acute bronchitis. 3. Advanced lung cancer. 4. Possible radiation pneumonitis. 5. Paroxysmal atrial fibrillation. PLAN: The patient appears very comfortable this morning. She is not short of breath at rest. She does state to feeling much, much better overall. On physical exam, her lungs remain clear. In addition, there is no significant alveolar-arterial gradient. I will continue the current nebulizer treatments and decrease the oral steroids this morning. Inputs by Infectious Disease and Oncology are also noted. Clinical status of the patient is significantly improved - compared to the initial presentation. However, given the above, her future status/prognosis does remain guarded. I will discuss the above with the attending physician later this morning. Nitesh Larkin MD MTDFavio
--- NOTE | 2018-03-19 15:47 | CP.PCM.PN ---
Subjective - Date & Time of Evaluation Date of Evaluation: 03/19/18 Time of Evaluation: 10:05 - Subjective Subjective: Comfortable, no fevers, no shortness of breath at rest, feeling better in general. Objective - Vital Signs/Intake and Output Vital Signs (last 24 hours): Temp Pulse Resp BP Pulse Ox 97.5 F L 96 H 20 128/70 96 03/18/18 10:00 03/18/18 10:31 03/18/18 10:00 03/18/18 10:31 03/18/18 10:00 - Medications Medications: Current Medications Albuterol/Ipratropium (Duoneb 3 Mg/0.5 Mg (3 Ml) Ud) 3 ml IH Q2H PRN; Protocol PRN Reason: Shortness of Breath Albuterol/Ipratropium (Duoneb 3 Mg/0.5 Mg (3 Ml) Ud) 3 ml IH [id number] [facility]; Protocol Last Admin: 03/18/18 13:00 Dose: 3 ml Arformoterol Tartrate (Brovana) 15 mcg IH [id number] [facility] Last Admin: 03/18/18 06:59 Dose: 15 mcg Aspirin (Aspirin Chewable) 81 mg PO 0800 [facility]; Protocol Last Admin: 03/18/18 08:14 Dose: 81 mg Atovaquone (Mepron) 750 mg PO DAILY [facility]; Protocol Last Admin: 03/18/18 10:32 Dose: 750 mg Budesonide (Pulmicort Respules) 0.5 mg IH [id number] [facility]; Protocol Last Admin: 03/18/18 06:59 Dose: 0.5 mg Calcium/Vitamin D (Oscal-D 250 Mg-125 Units Tab) 1 tab PO DAILY [facility]; Protocol Last Admin: 03/18/18 10:33 Dose: 1 tab Clotrimazole (Mycelex Mi) 10 mg MT QID [facility]; Protocol Last Admin: 03/18/18 17:14 Dose: 10 mg Diltiazem HCl (Cardizem Cd) 240 mg PO DAILY [facility] Last Admin: 03/18/18 10:31 Dose: 240 mg Docusate Sodium (Colace) 200 mg PO TID PRN; Protocol PRN Reason: Constipation Lorazepam (Ativan) 1 mg PO TID PRN; Protocol PRN Reason: Anxiety Last Admin: 03/18/18 10:31 Dose: 1 mg Pantoprazole Sodium (Protonix Ec Tab) 40 mg PO 0600,1800 [facility]; Protocol Last Admin: 03/18/18 17:15 Dose: 40 mg Prednisone (Prednisone Tab) 30 mg PO DAILY [facility] Last Admin: 03/18/18 10:33 Dose: 30 mg - Labs Labs: 03/13/18 06:00 03/15/18 06:30 - Constitutional Appears: No Acute Distress, Chronically Ill - Head Exam Head Exam: NORMAL INSPECTION - Respiratory Exam Respiratory Exam: Decreased Breath Sounds - Cardiovascular Exam Cardiovascular Exam: +S1, +S2 - GI/Abdominal Exam GI & Abdominal Exam: Soft. absent: Tenderness Assessment and Plan - Assessment and Plan (Free Text) Plan: Assessment Diarrhea with no evidence of C. diff. (Stool antigen and toxin are negative) S/P sepsis from atypical HCAP chronic steroid use lung cancer CAD S/P CABG S/P mastectomy COPD anxiety chronic atrial fibrillation Plan continue prophylactic dose of Mepron and will continue to monitor clinically
--- NOTE | 2018-03-19 16:01 | CP.PCM.PN ---
Subjective - Date & Time of Evaluation Date of Evaluation: 03/19/18 Time of Evaluation: 11:00 - Subjective Subjective: PGY-2 heme/onc progress note for Dr Mode Restrepo No acute events noted overnight. Patient seen with grand-daughter at bedside. She stated she felt well and has been working with physical therapy. No shortness of breath at rest. Objective - Vital Signs/Intake and Output Vital Signs (last 24 hours): Temp Pulse Resp BP Pulse Ox 98.3 F 90 20 130/78 93 L 03/19/18 10:00 03/19/18 10:04 03/19/18 10:00 03/19/18 10:04 03/19/18 10:00 Intake and Output: 03/19/18 03/19/18 06:59 18:59 Intake Total 320 Balance 320 - Medications Medications: Current Medications Albuterol/Ipratropium (Duoneb 3 Mg/0.5 Mg (3 Ml) Ud) 3 ml IH Q2H PRN; Protocol PRN Reason: Shortness of Breath Albuterol/Ipratropium (Duoneb 3 Mg/0.5 Mg (3 Ml) Ud) 3 ml IH [id number] [facility]; Protocol Last Admin: 03/19/18 13:18 Dose: 3 ml Arformoterol Tartrate (Brovana) 15 mcg IH [id number] [facility] Last Admin: 03/19/18 07:58 Dose: 15 mcg Aspirin (Aspirin Chewable) 81 mg PO 0800 [facility]; Protocol Last Admin: 03/19/18 10:05 Dose: 81 mg Atovaquone (Mepron) 750 mg PO DAILY [facility]; Protocol Last Admin: 03/19/18 10:05 Dose: 750 mg Budesonide (Pulmicort Respules) 0.5 mg IH [id number] [facility]; Protocol Last Admin: 03/19/18 07:58 Dose: 0.5 mg Calcium/Vitamin D (Oscal-D 250 Mg-125 Units Tab) 1 tab PO DAILY [facility]; Protocol Last Admin: 03/19/18 10:05 Dose: 1 tab Clotrimazole (Mycelex Mi) 10 mg MT QID [facility]; Protocol Last Admin: 03/19/18 15:26 Dose: Not Given Diltiazem HCl (Cardizem Cd) 240 mg PO DAILY [facility] Last Admin: 03/19/18 10:04 Dose: 240 mg Docusate Sodium (Colace) 200 mg PO TID PRN; Protocol PRN Reason: Constipation Lorazepam (Ativan) 1 mg PO TID PRN; Protocol PRN Reason: Anxiety Last Admin: 03/19/18 10:04 Dose: 1 mg Pantoprazole Sodium (Protonix Ec Tab) 40 mg PO 0600,1800 [facility]; Protocol Last Admin: 03/19/18 05:42 Dose: 40 mg Prednisone (Prednisone Tab) 20 mg PO DAILY [facility] Last Admin: 03/19/18 10:05 Dose: 20 mg - Labs Labs: 03/13/18 06:00 03/15/18 06:30 - Additional Findings Additional findings: - Constitutional Appears: No Acute Distress, Chronically Ill - Head Exam Head Exam: NORMAL INSPECTION - Respiratory Exam Respiratory Exam: Decreased Breath Sounds - Cardiovascular Exam Cardiovascular Exam: +S1, +S2 - GI/Abdominal Exam GI & Abdominal Exam: Soft. absent: Tenderness Assessment and Plan - Assessment and Plan (Free Text) Plan: Ms Mcdonald sobia 77 y/o woman with a pmhx significant for breast cancer s/p mastectomy; NSCLC, COPD, ASCVD who is admitted with severe sepsis in setting of HCAP and COPD exacerbation: #Diarrhea with no evidence of C. diff. (Stool antigen and toxin are negative) - Resolved #S/P sepsis from atypical HCAP #chronic steroid use #NSC lung cancer #CAD S/P CABG #Breast Cancer S/P mastectomy #COPD #anxiety #chronic atrial fibrillation Plan continue prophylactic dose of Mepron and will continue to monitor clinically (dose was reduced as side effect can be diarrhea). Continue duoneb scheduled and prn and scheduled brovana and pulmicort. Continue aspirin 81mg po qd, cardizem 240mg po qd. Continue prednisone 20mg po qd. Case discussed with Dr Mode Restrepo.
[2018-03-20] MEDS: Albuterol-Ipratrop 3 mg / 0.5 (3 ml) UD IH SCH ×4 (01:38→21:27)
[2018-03-20] MEDS: Pantoprazole 40 mg EC Tab PO SCH ×2 (05:24→17:37)
--- NOTE | 2018-03-20 08:10 | PN ---
DATE: 03/20/2018 PULMONARY NOTE SUBJECTIVE: The patient appears very comfortable this morning. She is not short of breath at rest. PHYSICAL EXAMINATION: VITALS: (last noted in the computer): Temperature is 97.3, pulse 87, respirations 18-20, blood pressure 110/63. Oxygen saturation on room air is 97%. HEENT: Normocephalic, atraumatic. No JVD. CARDIOVASCULAR: Positive S1, S2. No S3 gallop. LUNGS: A few minimal expiratory wheezes are appreciated. Lungs are otherwise clear. EXTREMITIES: Mild edema. No cyanosis. No clubbing. Calves are nontender to palpation. GASTROINTESTINAL: Abdomen is soft, nontender, and nondistended. Bowel sounds are positive. SKIN: No acute rash. NEUROLOGIC: Exam limited at the present time. IMPRESSION: 1. Chronic obstructive pulmonary disease. 2. Acute bronchitis. 3. Advanced lung cancer. 4. Possible radiation pneumonitis. 5. Paroxysmal atrial fibrillation. PLAN: The patient appears very comfortable this morning. She is not short of breath at rest. She does state to feeling much, much better overall. On physical exam, there is no significant bronchospasm noted. In addition, the oxygen saturation on room air is now 97%. I will continue the current nebulizer treatments and oral steroids (decreased yesterday) for now. Inputs by Infectious Disease and Oncology are also noted. Clinical status of the patient is significantly improved - compared to the initial presentation. However, given the above, the future status/prognosis for this patient does remain guarded. I will discuss the above with the attending physician. Nitesh Larkin MD MTDD
[2018-03-20] MEDS: Budesonide 0.5 mg/2 ml Inhal Susp UD IH SCH ×2 (08:40→21:27)
[2018-03-20] MEDS: Arformoterol 15 mcg/2 ml Inh Sol IH SCH ×2 (08:40→21:27)
[2018-03-20] MEDS: diltiaZEM 240 mg/24 Hours CD Cap PO SCH (09:20)
[2018-03-20] MEDS: Calcium-Vit D 250 mg-125 Units Tab UD PO SCH (09:20)
[2018-03-20] MEDS: Atovaquone 750 mg/5 ml Susp UD PO SCH (09:21)
--- NOTE | 2018-03-20 18:48 | CP.PCM.PN ---
Subjective - Date & Time of Evaluation Date of Evaluation: 03/20/18 Time of Evaluation: 09:25 - Subjective Subjective: Comfortable, cough is improved, not short of breath at rest, no fevers, no nausea, no diarrhea. Objective - Vital Signs/Intake and Output Vital Signs (last 24 hours): Temp Pulse Resp BP Pulse Ox 98.3 F 90 20 130/78 93 L 03/19/18 10:00 03/19/18 10:04 03/19/18 10:00 03/19/18 10:04 03/19/18 10:00 Intake and Output: 03/19/18 03/19/18 06:59 18:59 Intake Total 320 Balance 320 - Medications Medications: Current Medications Albuterol/Ipratropium (Duoneb 3 Mg/0.5 Mg (3 Ml) Ud) 3 ml IH Q2H PRN; Protocol PRN Reason: Shortness of Breath Albuterol/Ipratropium (Duoneb 3 Mg/0.5 Mg (3 Ml) Ud) 3 ml IH [id number] [facility]; Protocol Last Admin: 03/19/18 13:18 Dose: 3 ml Arformoterol Tartrate (Brovana) 15 mcg IH [id number] [facility] Last Admin: 03/19/18 07:58 Dose: 15 mcg Aspirin (Aspirin Chewable) 81 mg PO 0800 [facility]; Protocol Last Admin: 03/19/18 10:05 Dose: 81 mg Atovaquone (Mepron) 750 mg PO DAILY [facility]; Protocol Last Admin: 03/19/18 10:05 Dose: 750 mg Budesonide (Pulmicort Respules) 0.5 mg IH [id number] [facility]; Protocol Last Admin: 03/19/18 07:58 Dose: 0.5 mg Calcium/Vitamin D (Oscal-D 250 Mg-125 Units Tab) 1 tab PO DAILY [facility]; Protocol Last Admin: 03/19/18 10:05 Dose: 1 tab Clotrimazole (Mycelex Mi) 10 mg MT QID [facility]; Protocol Last Admin: 03/19/18 15:26 Dose: Not Given Diltiazem HCl (Cardizem Cd) 240 mg PO DAILY [facility] Last Admin: 03/19/18 10:04 Dose: 240 mg Docusate Sodium (Colace) 200 mg PO TID PRN; Protocol PRN Reason: Constipation Lorazepam (Ativan) 1 mg PO TID PRN; Protocol PRN Reason: Anxiety Last Admin: 03/19/18 10:04 Dose: 1 mg Pantoprazole Sodium (Protonix Ec Tab) 40 mg PO 0600,1800 [facility]; Protocol Last Admin: 03/19/18 05:42 Dose: 40 mg Prednisone (Prednisone Tab) 20 mg PO DAILY [facility] Last Admin: 03/19/18 10:05 Dose: 20 mg - Labs Labs: 03/13/18 06:00 03/15/18 06:30 - Constitutional Appears: Chronically Ill - Head Exam Head Exam: NORMAL INSPECTION - Respiratory Exam Respiratory Exam: Decreased Breath Sounds - Cardiovascular Exam Cardiovascular Exam: +S1, +S2 - GI/Abdominal Exam GI & Abdominal Exam: Soft. absent: Tenderness Assessment and Plan - Assessment and Plan (Free Text) Plan: Assessment Diarrhea with no evidence of C. diff. (Stool antigen and toxin are negative) S/P sepsis from atypical HCAP chronic steroid use lung cancer CAD S/P CABG S/P mastectomy COPD anxiety chronic atrial fibrillation Plan continue prophylactic dose of Mepron and will continue to follow clinically
[2018-03-20] MEDS ORDERED: Petrolatum Oint Foilpak (5 gm) TOP PRN (21:00)
[2018-03-21] MEDS: Albuterol-Ipratrop 3 mg / 0.5 (3 ml) UD IH SCH ×3 (02:08→13:15)
[2018-03-21] MEDS: Pantoprazole 40 mg EC Tab PO SCH (05:32)
[2018-03-21] MEDS: Arformoterol 15 mcg/2 ml Inh Sol IH SCH (07:11)
[2018-03-21] MEDS: Budesonide 0.5 mg/2 ml Inhal Susp UD IH SCH (07:11)
--- NOTE | 2018-03-21 09:06 | CP.PCM.PN ---
Subjective - Date & Time of Evaluation Date of Evaluation: 03/21/18 Time of Evaluation: 09:01 - Subjective Subjective: PGY-2 heme/onc progress note for Dr Mode Restrepo Objective - Vital Signs/Intake and Output Vital Signs (last 24 hours): Temp Pulse Resp BP Pulse Ox 97.9 F 91 H 20 105/68 94 L 03/20/18 16:00 03/20/18 16:00 03/20/18 16:00 03/20/18 16:00 03/20/18 16:00 Intake and Output: 03/21/18 03/21/18 06:59 18:59 Intake Total 420 Balance 420 - Medications Medications: Current Medications Albuterol/Ipratropium (Duoneb 3 Mg/0.5 Mg (3 Ml) Ud) 3 ml IH Q2H PRN; Protocol PRN Reason: Shortness of Breath Albuterol/Ipratropium (Duoneb 3 Mg/0.5 Mg (3 Ml) Ud) 3 ml IH [id number] [facility]; Protocol Last Admin: 03/21/18 07:11 Dose: 3 ml Arformoterol Tartrate (Brovana) 15 mcg IH [id number] [facility] Last Admin: 03/21/18 07:11 Dose: 15 mcg Aspirin (Aspirin Chewable) 81 mg PO 0800 [facility]; Protocol Last Admin: 03/20/18 07:55 Dose: 81 mg Budesonide (Pulmicort Respules) 0.5 mg IH [id number] [facility]; Protocol Last Admin: 03/21/18 07:11 Dose: 0.5 mg Calcium/Vitamin D (Oscal-D 250 Mg-125 Units Tab) 1 tab PO DAILY [facility]; Protocol Last Admin: 03/20/18 09:20 Dose: 1 tab Clotrimazole (Mycelex Mi) 10 mg MT QID [facility]; Protocol Last Admin: 03/20/18 21:21 Dose: Not Given Diltiazem HCl (Cardizem Cd) 240 mg PO DAILY [facility] Last Admin: 03/20/18 09:20 Dose: 240 mg Docusate Sodium (Colace) 200 mg PO TID PRN; Protocol PRN Reason: Constipation Emollient Ointment (Vaseline Oint) 5 gm TOP Q4H PRN; Protocol PRN Reason: Dry skin Last Admin: 03/21/18 00:13 Dose: 5 gm Lorazepam (Ativan) 1 mg PO TID PRN; Protocol PRN Reason: Anxiety Last Admin: 03/20/18 21:21 Dose: 1 mg Pantoprazole Sodium (Protonix Ec Tab) 40 mg PO 0600,1800 [facility]; Protocol Last Admin: 03/21/18 05:32 Dose: 40 mg Prednisone (Prednisone Tab) 20 mg PO DAILY [facility] Last Admin: 03/20/18 09:20 Dose: 20 mg - Labs Labs: 03/13/18 06:00 03/15/18 06:30 Assessment and Plan - Assessment and Plan (Free Text) Plan: Ms Mcdonald sobia 77 y/o woman with a pmhx significant for breast cancer s/p mastectomy; NSCLC, COPD, ASCVD who is admitted with severe sepsis in setting of HCAP and COPD exacerbation: #Diarrhea with no evidence of C. diff. (Stool antigen and toxin are negative) - Resolved #S/P sepsis from atypical HCAP #chronic steroid use #NSC lung cancer #CAD S/P CABG #Breast Cancer S/P mastectomy #COPD #anxiety #chronic atrial fibrillation Plan continue prophylactic dose of Mepron and will continue to monitor clinically (dose was reduced as side effect can be diarrhea). Continue duoneb scheduled and prn and scheduled brovana and pulmicort. Continue aspirin 81mg po qd, cardizem 240mg po qd. Continue prednisone 20mg po qd. Working with physical therapy - recommend home with services Case discussed with Dr Mode Restrepo.
--- NOTE | 2018-03-21 09:15 | PN ---
DATE: 03/21/2018 SUBJECTIVE: The patient appears very comfortable this morning. She is not short of breath at rest. PHYSICAL EXAMINATION: VITAL SIGNS (Last noted in the computer): Temperature 97.9, pulse 91, respirations 18/20, blood pressure 105/68. Oxygen saturation on room air is 94-96%. HEENT: Normocephalic, atraumatic. NECK: No JVD. CARDIOVASCULAR: Positive S1, S2. No S3 gallop. LUNGS: Clear bilaterally this morning. EXTREMITIES: Mild edema. No cyanosis. No clubbing. Calves are nontender to palpation. GI: Abdomen is soft, nontender and nondistended. Bowel sounds are positive. SKIN: No acute rash. NEUROLOGIC: Exam limited to present time. IMPRESSION 1. Chronic obstructive pulmonary disease. 2. Acute bronchitis. 3. Advanced lung cancer. 4. Possible radiation pneumonitis. 5. Paroxysmal atrial fibrillation. PLAN: The patient appears very comfortable this morning. She is not short of breath at rest. She does state to feeling much, much better overall. On physical exam, her bronchospasm has resolved. In addition, the alveolar-arterial gradient has also resolved. I will continue with the current nebulizer treatments and oral steroids for now. Inputs by Oncology and Infectious Disease are also noted. Clinical status of the patient is significantly improved - compared to her initial presentation. She is for discharge in the near future. I did educate the patient on how I want her to use the pulmonary medications at home. She is well aware that she will need to follow closely with us in the office. I will discuss the above with the attending physician. Nitesh Larkin MD [facility]
[2018-03-21] MEDS: diltiaZEM 240 mg/24 Hours CD Cap PO SCH (09:28)
[2018-03-21] MEDS: Calcium-Vit D 250 mg-125 Units Tab UD PO SCH (09:29)
[2018-03-21 09:31] VITALS: BP 122/75
[2018-03-21] MEDS ORDERED: Atovaquone 750 mg/5 ml Susp UD PO SCH (10:00)
[2018-03-21 10:04] VITALS: PULSE 102; TEMP 97.5; O2SAT 95
--- NOTE | 2018-03-21 14:50 | CP.PCM.DIS ---
Provider - Provider Date of Admission: 03/12/18 15:56 Attending physician: Bill Valencia MD Primary care physician: PMD: Dr Valencia Consults: 03/12/18 17:09 Physician Consult Routine Comment: elevated wbc Consulting Provider: Marino Madera Consulting Physician: Marino Madera Reason for Consult: elevated wbc Physician Consult Routine Comment: shortness of breath Consulting Provider: Nitesh Larkin Consulting Physician: Nitesh Larkin Reason for Consult: shortness of breath 03/12/18 17:10 Physician Consult Routine Comment: afib, cabg Consulting Provider: Devonte Infante Consulting Physician: Devonte Infante Reason for Consult: afib, cabg 03/12/18 23:23 Inpatient [employer] Core Measures Referral Routine Comment: sepsis/pneumonia Physician Instructions: Reason For Exam: eval Social Work Referral Routine Comment: d/c plan Physician Instructions: Reason For Exam: eval Transition In Care/Readmission Reduction Routine Comment: Physician Instructions: Reason For Exam: eval 03/20/18 16:47 Physician Consult Routine Comment: Consulting Provider: Enrique Beaulieu Consulting Physician: Enrique Beaulieu Reason for Consult: blurry vision Time Spent in preparation of Discharge (in minutes): 44 Diagnosis - Discharge Diagnosis (1) Pneumonia Status: Resolved Priority: High (2) Sepsis Status: Resolved Priority: High Hospital Course - Lab Results Lab Results: Micro Results 03/16/18 17:00 Stool C. difficile Antigen & Toxins A,B - Final Most Recent Lab Values WBC 19.5 10^3/uL (4.5-11.0) H 03/13/18 06:00 RBC 4.94 10^6/uL (3.5-6.1) 03/13/18 06:00 Hgb 13.7 g/dL (12.0-16.0) 03/13/18 06:00 Hct 42.9 % (36.0-48.0) 03/13/18 06:00 MCV 86.8 fl (80.0-105.0) 03/13/18 06:00 MCH 27.7 pg (25.0-35.0) 03/13/18 06:00 MCHC 31.9 g/dl (31.0-37.0) 03/13/18 06:00 RDW 16.7 % (11.5-14.5) H 03/13/18 06:00 Plt Count 455 10^3/uL (120.0-450.0) H 03/13/18 06:00 MPV 9.0 fl (7.0-11.0) 03/13/18 06:00 Gran % 92.1 % (50.0-68.0) H 03/13/18 06:00 Lymph % (Auto) 4.7 % (22.0-35.0) L 03/13/18 06:00 [place] % (Auto) 2.9 % (1.0-6.0) 03/13/18 06:00 Eos % (Auto) 0.0 % (1.5-5.0) L 03/13/18 06:00 Baso % (Auto) 0.3 % (0.0-3.0) 03/13/18 06:00 Gran # 17.95 (1.4-6.5) H 03/13/18 06:00 Lymph # (Auto) 0.9 (1.2-3.4) L 03/13/18 06:00 [place] # (Auto) 0.6 (0.1-0.6) 03/13/18 06:00 Eos # (Auto) 0.0 (0.0-0.7) 03/13/18 06:00 Baso # (Auto) 0.05 K/mm3 (0.0-2.0) 03/13/18 06:00 Neutrophils % (Manual) 90 % (50.0-70.0) H 03/13/18 06:00 Band Neutrophils % 2 % (0-2) 03/13/18 06:00 Lymphocytes % (Manual) 7 % (22.0-35.0) L 03/13/18 06:00 Monocytes % (Manual) TEST NOT PERFORMED 03/13/18 06:00 Metamyelocytes % 1 % 03/13/18 06:00 Platelet Evaluation Normal (NORMAL) 03/13/18 06:00 Sodium 137 mmol/L (132-148) 03/15/18 06:30 Potassium 4.6 mmol/L (3.6-5.0) 03/15/18 06:30 Chloride 101 mmol/L (98-107) 03/15/18 06:30 Carbon Dioxide 32 mmol/L (21-33) 03/15/18 06:30 Anion Gap 8 (10-20) L 03/15/18 06:30 BUN 36 mg/dL (7-21) H 03/15/18 06:30 Creatinine 1.0 mg/dl (0.7-1.2) 03/15/18 06:30 Est GFR ( Amer) > 60 03/15/18 06:30 Est GFR (Non-Af Amer) 54 03/15/18 06:30 Random Glucose 100 mg/dL (70-110) 03/15/18 06:30 Calcium 9.5 mg/dL (8.4-10.5) 03/15/18 06:30 Total Bilirubin 0.5 mg/dL (0.2-1.3) 03/15/18 06:30 AST 24 U/L (14-36) 03/15/18 06:30 ALT 47 U/L (7-56) 03/15/18 06:30 Alkaline Phosphatase 62 U/L (38-126) 03/15/18 06:30 Total Protein 6.1 g/dL (5.8-8.3) 03/15/18 06:30 Albumin 3.4 g/dL (3.0-4.8) 03/15/18 06:30 Globulin 2.7 gm/dL 03/15/18 06:30 Albumin/Globulin Ratio 1.2 (1.1-1.8) 03/15/18 06:30 - Hospital Course Hospital Course: Ms Mcdonald sobia 77 y/o woman with a pmhx significant for breast cancer s/p mastectomy; NSCLC, COPD, ASCVD who is admitted with severe sepsis in setting of HCAP and COPD exacerbation: #Diarrhea with no evidence of C. diff. (Stool antigen and toxin are negative) - Resolved #S/P sepsis from atypical HCAP #chronic steroid use #NSC lung cancer #CAD S/P CABG #Breast Cancer S/P mastectomy #COPD #anxiety #chronic atrial fibrillation Mrs Mcdonald was treated for pneumonia. Many different etiologies were investigated by testing, these included: crypto ag, flu swab, legionella ag, aspergillus ag and pcr, beta (1,3) glucan however all these returned negative. A CT chest was done. ID Dr boghassian was consulted for the infection, cardio Dr Calderón was consulted for her paroxysmal AFib, pulmonary Dr Larkin was consulted for her extensive lung hx including COPD and NSCLC s/p photon beam therapy (she was not a candidate for resection). She was given IV abx and improved day by day. She was later transitioned to TCU for acute rehab. By discharge her breathing had improved vastly. She was given detailed discharge instructions. Discharge Exam - Head Exam Head Exam: NORMAL INSPECTION - Additional Findings Additional findings: - Constitutional Appears: No Acute Distress, Chronically Ill - Head Exam Head Exam: NORMAL INSPECTION - Respiratory Exam Respiratory Exam: Decreased Breath Sounds - Cardiovascular Exam Cardiovascular Exam: +S1, +S2 - GI/Abdominal Exam GI & Abdominal Exam: Soft. absent: Tenderness Discharge Plan - Discharge Medications Prescriptions: Aspirin [Aspirin Chewable] 81 mg PO 0800 #30 chew Atovaquone [Mepron] 750 mg PO DAILY #30 packet Calcium Carbonate/Vitamin D [Oscal-D 250 mg-125 Units Tab] 1 tab PO DAILY #30 tab Clotrimazole [Mycelex Mi] 10 mg MT QID #120 molly Diltiazem HCl [Cardizem LA] 240 mg PO DAILY #30 tab.er.24h Omeprazole 20 mg PO DAILY #30 capsule. predniSONE [predniSONE Tab] 20 mg PO DAILY 30 Days tab - Follow Up Plan Condition: GOOD Disposition: HOME/ ROUTINE Instructions: Preventing Falls in the Older Adult, Pneumonia, Adult (DC), Sepsis, Adult (DC) Additional Instructions: Please follow-up with Dr Restrepo in 2 weeks. Please follow-up with your primary medical doctor, Dr Valencia within 7 days. Please follow-up with your sign fabricator Dr Larkin - he has told you to follow- up with him in 2 weeks. You will be given scripts for the following medications, please take them as i nstructed. You may have some of these medications at home already. 1. Prednisone 20mg 1 tablet once a day 2. aspirin 81mg 1 tablet once a day 3. Calcium carbonate/Vitamin D (oscal) 250mg-125mg 1 tablet once a day 4. Diltiazem (cardizem) 240mg 1 tablet once a day 5. Omeprazole 20mg 1 tablet once a day 6. Prednisone 20mg 1 tablet once a day (please continue this until you follow-up with Dr Larkin in his office) 7. Atovaquone (mepron) 750mg, this will come in a packet, please follow instructions on the packet and take 1 per day Please continue your other normal home medications as prescribed by your primary medical doctor. Please follow Dr Larkin's instructions regarding your inhaler/nebulizer regimen. Referrals: Vicki Restrepo MD [Staff Provider] - Nitesh Larkin MD [Staff Provider] - Bill Valencia MD [Family Provider] -
== END 2018-03-21 15:27 | disposition home or self-care (01) | DRG 871 ==
LOC: TRCU 15:56
PROVIDERS: ADMIT Family Medicine; ATTEND Family Medicine
PROC: 3E0F7GC Introduction of Other Therapeutic Substance into Respiratory Tract, Via Natural or Artificial Opening (ICD-10-PCS; 2018-03-12)
PROC: F07Z9ZZ Gait Training/Functional Ambulation Treatment (ICD-10-PCS; principal; 2018-03-13)
PROC: F08Z4ZZ Home Management Treatment (ICD-10-PCS; 2018-03-13)
DX: A41.9 Sepsis, unspecified organism (principal); J18.9 Pneumonia, unspecified organism; J70.0 Acute pulmonary manifestations due to radiation; J44.1 Chronic obstructive pulmonary disease with (acute) exacerbation; J44.0 Chronic obstructive pulmonary disease with (acute) lower respiratory infection; C34.90 Malignant neoplasm of unspecified part of unspecified bronchus or lung; I48.2 Chronic atrial fibrillation; I25.10 Atherosclerotic heart disease of native coronary artery without angina pectoris; R65.20 Severe sepsis without septic shock; E78.00 Pure hypercholesterolemia, unspecified; I48.0 Paroxysmal atrial fibrillation; J20.9 Acute bronchitis, unspecified; F41.9 Anxiety disorder, unspecified; Z85.3 Personal history of malignant neoplasm of breast; Z79.52 Long term (current) use of systemic steroids; Z90.10 Acquired absence of unspecified breast and nipple; Z95.1 Presence of aortocoronary bypass graft

== ENCOUNTER 2018-05-28 09:01 | Outpatient (CLI) | payer MEDICARE, BC | END 2018-05-28 09:02 | disposition home or self-care (01) | LOC: RAD 09:01 ==

== ENCOUNTER 2018-07-26 05:51 | Outpatient (CLI) | payer MEDICARE, BC | END 2018-07-26 05:52 | disposition home or self-care (01) | LOC: PET-BROA 05:51 ==